=== PATIENT | female | born 1970 | race Caucasian/White ===

== ENCOUNTER → 2018-07-11 10:52 | Outpatient (CLI) | payer BC, SELFPAY ==
[2018-07-11 13:13] LABS: Thyroid Stimulating Hormone 0.73 uIU/mL (0.47-4.68)
== END ==
PROVIDERS: PCP Family Medicine; Visit Provider Internal Medicine Endocrinology, Diabetes & Metabolism
DX: C73 Malignant neoplasm of thyroid gland (principal); E89.0 Postprocedural hypothyroidism
CPT/HCPCS: 36415; 84443

== ENCOUNTER → 2019-07-30 11:47 | Outpatient (CLI) | payer BC, SELFPAY ==
[2019-07-30 12:19] LABS: Add Manual Diff / Slide Review NO; Basophils Absolute Auto 0 /uL (0-100); Basophils Percent Auto 0.5 % (0-2); Eosinophils Absolute Auto 100 /uL (0-450); Eosinophils Percent Auto 1.9 % (2-4); Hemoglobin 13.5 g/dL (12.0-16.0); Lymphocytes Absolute Auto 1500 /uL (1100-4500); Lymphocytes Percent Auto 29.9 % (25-40); Mean Corpuscular HGB Conc 34.7 % (30-36); Mean Corpuscular Hemoglobin 31.6 PG (26-34); Monocytes Absolute Auto 400 /uL (0-900); Monocytes Percent Auto 7.2 % (3-14); Neutrophils Absolute Auto 3000 /uL (1500-7000); Neutrophils Percent Auto 60.5 % (50-75); Platelet Count 207 X10^3/uL (150-400); Red Blood Cell Count 4.29 X10^6/uL (4.0-5.2); Red Cell Distribution Width 12.7 % (11.6-14.8)
[2019-07-30 12:30] LABS: Hemoglobin A1C% w Est Avg Glu 5.5 % (4.0-6.0)
[2019-07-30 12:49] LABS: Cholesterol 194 mg/dL (140-199); HDL Cholesterol 90 mg/dL (40-60); LDL Cholesterol Calculated 93 mg/dL (<100); Magnesium 1.9 mg/dL (1.6-2.3); Triglycerides 53 mg/dL (35-150)
[2019-07-30 13:06] LABS: Free T4, Direct Thyroxine 1.46 ng/dL (0.78-2.19); Vitamin D 25 Hydroxy (D3) 79.2 ng/mL (30.0-100.0)
[2019-07-30 13:20] LABS: Thyroid Stimulating Hormone 0.17 uIU/mL (0.47-4.68)
[2019-07-30 13:37] LABS: Ferritin 26.6 ng/mL (6.27-137)
[2019-07-30 14:07] LABS: Folate > 20.0 ng/mL (2.76-20.0); Vitamin B12 971 pg/mL (239-931)
[2019-08-01 14:27] LABS: Parathyroid Hormone, Intact 54 pg/mL (14-64)
[2019-08-02 13:11] LABS: Apolipoprotein B 65 mg/dL (<90); Cholesterol, Total 193 mg/dL (<200); HDL Cholesterol 97 mg/dL (> OR = 50); Lipoprotein (a) 77 nmol/L (<75); Non- HDL Cholesterol 96 (<130); Triglycerides 55 mg/dL (<150)
[2019-08-03 10:17] LABS: Vitamin B1 147 nmol/L (78-185)
[2019-08-03 13:55] LABS: Vitamin A 44 mcg/dL (38-98)
== END ==
PROVIDERS: PCP Student in an Organized Health Care Education/Training Program; Referring Provider Nurse Practitioner Family; Visit Provider Internal Medicine Endocrinology, Diabetes & Metabolism
DX: C73 Malignant neoplasm of thyroid gland (principal); E89.0 Postprocedural hypothyroidism; E66.01 Morbid (severe) obesity due to excess calories
CPT/HCPCS: 36415; 80061; 82306; 82310; 82607; 82728; 82746; 83036; 83695; 83735; 83970; 84425; 84439; 84443; 84590; 85025

== ENCOUNTER → 2019-09-30 13:24 | Outpatient (CLI) | payer BC, SELFPAY | PROVIDERS: PCP Student in an Organized Health Care Education/Training Program; Referring Provider Internal Medicine Endocrinology, Diabetes & Metabolism; Visit Provider Internal Medicine Endocrinology, Diabetes & Metabolism | DX: E89.0 Postprocedural hypothyroidism (principal) | CPT/HCPCS: 36415; 84443 ==

== ENCOUNTER → 2020-02-27 12:28 | Outpatient (CLI) | payer BC, SELFPAY ==
[2020-02-27 13:57] LABS: Thyroid Stimulating Hormone 0.778 uIU/mL (0.47-4.68)
== END ==
PROVIDERS: PCP Student in an Organized Health Care Education/Training Program; Referring Provider Internal Medicine Endocrinology, Diabetes & Metabolism; Visit Provider Internal Medicine Endocrinology, Diabetes & Metabolism
DX: E89.0 Postprocedural hypothyroidism (principal); C73 Malignant neoplasm of thyroid gland
CPT/HCPCS: 36415; 84443

== ENCOUNTER → 2020-08-06 10:18 | Outpatient (CLI) | payer BC, SELFPAY ==
[2020-08-06 12:17] LABS: Free T4, Direct Thyroxine 1.25 ng/dL (0.78-2.19)
[2020-08-06 12:31] LABS: Thyroid Stimulating Hormone 0.943 uIU/mL (0.47-4.68)
== END ==
PROVIDERS: PCP Student in an Organized Health Care Education/Training Program; Referring Provider Internal Medicine Endocrinology, Diabetes & Metabolism; Visit Provider Internal Medicine Endocrinology, Diabetes & Metabolism
DX: C73 Malignant neoplasm of thyroid gland (principal); E89.0 Postprocedural hypothyroidism
CPT/HCPCS: 36415; 84439; 84443

== ENCOUNTER → 2020-12-18 12:58 | Outpatient (CLI) | payer BC, SELFPAY ==
--- NOTE | 2020-12-18 | DI.MG.S_ITS ---
BILATERAL DIGITAL SCREENING MAMMOGRAM 3D/2D WITH CAD: 12/18/2020 CLINICAL: Routine screening. Comparison is made to exams dated: 09/18/2018 mammogram and 11/12/2019 mammogram - outside facility. There are scattered fibroglandular elements in both breasts. Current study was also evaluated with a Computer Aided Detection (CAD) system. No significant masses, calcifications, or other findings are seen in either breast. There has been no significant interval change. IMPRESSION: NEGATIVE There is no mammographic evidence of malignancy. A 1 year screening mammogram is recommended. This exam was interpreted at Station ID: [id number]. NOTE: For mammograms, a report in lay terms will be sent to the patient. Approximately 15% of breast malignancies will not be visualized mammographically. In the management of a palpable breast mass, a negative mammogram must not discourage biopsy of a clinically suspicious lesion. Electronically Signed By: Hero benjamin/maci:12/18/2020 13:34:34 letter sent: Normal Exam ACR BI-RADS Category 1: Negative 3341F
== END ==
PROVIDERS: PCP Student in an Organized Health Care Education/Training Program; Referring Provider Student in an Organized Health Care Education/Training Program; Visit Provider Student in an Organized Health Care Education/Training Program
DX: Z12.31 Encounter for screening mammogram for malignant neoplasm of breast (principal)
CPT/HCPCS: 77063; 77067

== ENCOUNTER → 2021-10-07 10:45 | Outpatient (CLI) | payer BC, SELFPAY ==
--- NOTE | 2021-10-07 | DI.US.S_ITS ---
PROCEDURE: US THYROID INDICATIONS: HISTORY THYROID CANCER/RIGHT THYROIDECTOMY TECHNIQUE: Real-time scanning was performed of the thyroid gland, with image documentation. COMPARISON: None. FINDINGS: Right: Removed Left: Thyroid lobe measures 5.2 x 1.6 x 1.4 cm, and is homogenous in echotexture. Isthmus: 1.2 mm thick. IMPRESSION: Normal appearing left thyroid lobe. Status post right thyroidectomy. ACR TI-RADS definitions and recommendations: TI-RADS 1 (benign): 0 points. FNA not needed. TI-RADS 2 (not suspicious): 2 points. FNA not needed. TI-RADS 3 (mildly suspicious): 3 points. * FNA if 2.5 cm or larger, follow up if 1.5 cm or larger (at 1, 3, and 5 years). TI-RADS 4 (moderately suspicious): 4-6 points. * FNA if 1.5 cm or larger, follow up if 1 cm or larger (at 1, 2, 3, and 5 years). TI-RADS 5 (highly suspicious): 7 points or more. * FNA if 1 cm or larger, follow up if 0.5 cm or larger (every year for 5 years). Dictated by: Franklyn Peace M.D. on 10/07/2021 at 10:33 Approved by: Franklyn Peace M.D. on 10/07/2021 at 10:34
== END ==
PROVIDERS: PCP Student in an Organized Health Care Education/Training Program; Referring Provider Internal Medicine Endocrinology, Diabetes & Metabolism; Visit Provider Internal Medicine Endocrinology, Diabetes & Metabolism
DX: C73 Malignant neoplasm of thyroid gland (principal); E89.0 Postprocedural hypothyroidism
CPT/HCPCS: 76536

== ENCOUNTER → 2022-01-01 10:55 | Outpatient (CLI) | payer BC, SELFPAY ==
--- NOTE | 2022-01-01 10:56 | DI.MG.S_ITS ---
BILATERAL DIGITAL SCREENING MAMMOGRAM 3D/2D WITH CAD: 01/01/2022 CLINICAL: Routine screening. Comparison is made to exams dated: 12/18/2020 mammogram - [facility], 11/12/2019 mammogram, and 09/18/2018 mammogram - outside facility. There are scattered fibroglandular elements in both breasts. Current study was also evaluated with a Computer Aided Detection (CAD) system. There is a benign focal asymmetry in the left breast. There also are benign calcifications in the right breast. No significant masses, calcifications, or other findings are seen in either breast. There has been no significant interval change. IMPRESSION: BENIGN There is no mammographic evidence of malignancy. A 1 year screening mammogram is recommended. Based on the Tyrer Cuzick model (a risk assessment model) the patient's lifetime risk is 9.6% and her 10 year risk is 2.5%. According to the ACR, ACS, and NCCN guidelines, an annual breast MRI exam along with mammogram is recommended if the patient's lifetime risk is 20% or greater. This exam was interpreted at Station ID: [id number]. NOTE: For mammograms, a report in lay terms will be sent to the patient. Approximately 15% of breast malignancies will not be visualized mammographically. In the management of a palpable breast mass, a negative mammogram must not discourage biopsy of a clinically suspicious lesion. Electronically Signed By: Tiffanie lomax/maci:01/03/2022 09:14:06 letter sent: Normal Exam ACR BI-RADS Category 2: Benign Finding(s) 3342F
== END ==
PROVIDERS: PCP Student in an Organized Health Care Education/Training Program; Referring Provider Internal Medicine; Visit Provider Internal Medicine
DX: Z12.31 Encounter for screening mammogram for malignant neoplasm of breast (principal)
CPT/HCPCS: 77063; 77067

== ENCOUNTER 2022-08-15 19:04 | Emergency (ER) | payer BC, SELFPAY ==
[2022-08-15 19:12] VITALS: BP 160/86; PULSE 78; RESP 16; TEMP 36.6; O2SAT 98; BMI 30.4
[2022-08-15] MEDS: TET,DIPH,PERTUSS(ACELL),VAC/PF 0.5 ML SYRINGE IM (19:37)
[2022-08-15] MEDS: LIDOCAINE 2% INJ MDV 20ML 5 ML SUBCUT (19:37)
--- NOTE | 2022-08-15 19:40 | PC.NURSE ---
Patient cut left 1st finger with knife at 1845. Tip of finger is nearly amputated. Bleeding contorlled with guaze and pressure.
[2022-08-15] MEDS: IBUPROFEN 400 MG TABLET 800 MG PO (20:24)
--- NOTE | 2022-08-15 20:32 | ED.WOUNDLAC ---
HPI - Wound/Laceration <Deborah Daugherty PA-C - Last Filed: 08/16/22 12:12> General Chief Complaint: Wound/Laceration Stated Complaint: left hand/finger cut/bleeding Source: patient Mode of arrival: Ambulatory History of Present Illness HPI narrative: 52-year-old female status post a left thumb injury sustained just prior to arrival. Patient patient states that she was at home, trying to slice a blu, when the knife slipped and injured her left thumb. Patient states that it is extremely painful, was bleeding a lot, however bleeding is controlled with pressure. Patient's last tetanus unknown. Patient denies numbness, tingling, weakness. Patient endorses full range of motion. Related Data Allergies Allergy/AdvReac Type Severity Reaction Status Date / Time No Known Drug Allergies Allergy Verified 08/15/22 20:32 Review of Systems <Deborah Daugherty PA-C - Last Filed: 08/16/22 12:12> Review of Systems ROS Unobtainable: All systems reviewed & are unremarkable except as noted in HPI and below Constitutional Constitutional: Denies chills, Denies fatigue, Denies fever(s), Denies frequent falls, Denies lethargy and Denies weakness Eyes Eyes: Denies change in vision, Denies eye discharge, Denies irritation and Denies loss of vision ENT Ears, Nose, Mouth, and Throat: Denies change in voice, Denies dizziness, Denies neck pain, Denies sore throat and Denies throat swelling Cardiovascular Cardiovascular: Denies chest pain, Denies irregular heart rhythm, Denies lightheadedness, Denies palpitations, Denies dyspnea, Denies dyspnea on exertion and Denies orthopnea Respiratory Respiratory: Denies cough, Denies dyspnea, Denies dyspnea on exertion and Denies wheezing Gastrointestinal Gastrointestinal: Denies abdominal pain, Denies change in bowel habits, Denies diarrhea, Denies nausea and Denies vomiting Genitourinary Genitourinary: Denies hematuria, Denies flank pain, Denies urinary incontinence and Denies urinary urgency Musculoskeletal Musculoskeletal: Denies back pain, Denies muscle weakness, Denies neck pain, Denies numbness and Denies tingling Integumentary/Breasts Skin/Breast: Denies pruritus, Denies erythema, Denies rash and Denies wounds Comments: Laceration to tip of left thumb Neurologic Neurologic: Denies behavioral changes, Denies confusion, Denies dizziness, Denies frequent falls, Denies loss of vision, Denies numbness, Denies tingling and Denies weakness Psychiatric Psychiatric: Denies anxiety, Denies behavioral changes, Denies confusion, Denies depression, Denies homicidal ideation and Denies suicidal ideation Endocrine Endocrine: Denies fatigue, Denies flushing and Denies palpitations Hematologic/Lymphatic Hematologic/Lymphatic: Denies easy bruising Allergic/Immunologic Allergic/Immunologic: Denies urticaria, Denies throat swelling and Denies wheezing Patient History <Deborah Daugherty PA-C - Last Filed: 08/16/22 12:12> Social History Smoking Status: Never smoker Smoking Status: Never smoker alcohol intake frequency: holidays/special occasions only Substance Use Type: does not use Exam <Deborah Daugherty PA-C - Last Filed: 08/16/22 12:12> Narrative Exam Narrative: Const General:?cooperative, healthy appearing and comfortable [facility] Head:?normal to inspection Ears:?hearing grossly normal bilaterally Nose:?external nose normal Face and sinus:?normal facial exam and sinuses nontender Mouth:?oral mucosae normal Throat:?posterior oropharynx normal Eyes General:?appearance normal, both eyes and all related structures Neck Neck:?normal visual inspection and no lymphadenopathy noted Resp Effort & Inspection:?normal respiratory effort Auscultation:?clear to auscultation bilaterally Cardio Rate:?regular rate Rhythm:?regular rhythm Integumentary 1 cm flap laceration to the tip of the left thumb. Full range of motion. Strength and sensation intact. Patient is neurovascularly intact. No internal structures visualized on exam. Neuro General:?patient alert, patient awake and patient oriented x3 Initial Vital Signs Initial Vital Signs: Vital Signs Temperature 98 F 08/15/22 19:12 Pulse Rate 78 08/15/22 19:12 Respiratory Rate 16 08/15/22 19:12 Blood Pressure 160/86 H 08/15/22 19:12 Pulse Oximetry 98 08/15/22 19:12 Oxygen Delivery Method 08/15/22 19:12 <Puma Mcgrath DO - Last Filed: 08/17/22 06:44> Initial Vital Signs Initial Vital Signs: Vital Signs Temperature 98 F 08/15/22 19:12 Pulse Rate 78 08/15/22 19:12 Respiratory Rate 16 08/15/22 19:12 Blood Pressure 160/86 H 08/15/22 19:12 Pulse Oximetry 98 08/15/22 19:12 Oxygen Delivery Method 08/15/22 19:12 Procedures <Deborah Daugherty PA-C - Last Filed: 08/16/22 12:12> Laceration Repair Laceration 1: Site: hand Side (If applicable): left Size (cm): 1 Description: flap Local Anesthetic: lidocaine 1% Amount of anesthesia used (mL): 1 Pre-repair: wound explored, irrigated extensively and deep structures intact Skin layer closed with: vicryl Skin layer suture size: 5-0 Number of sutures: 3 Technique: simple, interrupted Course <Deborah Daugherty PA-C - Last Filed: 08/16/22 12:12> Orders Ordered: Discontinued Medications Bacitracin (Bacitracin Oint 0.9 Gm Pckt) 1 applic TOP NOW ONE Stop: 08/15/22 20:28 Last Admin: 08/15/22 20:33 Dose: 1 applic Documented By: CONSTANTINE Diphtheria/Tetanus/Acell Pertussis (Tet,Diph,Pertuss(Acell),Vac/Pf 0.5 Ml Syringe) 0.5 ml IM .ONCE ONE Stop: 08/15/22 19:33 Last Admin: 08/15/22 19:37 Dose: 0.5 ml Documented By: JEANINE Ibuprofen (Ibuprofen 400 Mg Tablet) 800 mg PO NOW ONE Stop: 08/15/22 20:13 Last Admin: 08/15/22 20:24 Dose: 800 mg Documented By: CORRY Lidocaine HCl (Lidocaine 2% Inj Mdv 20ml) 5 ml SUBCUT NOW ONE Stop: 08/15/22 19:30 Last Admin: 08/15/22 19:37 Dose: 5 ml Documented By: JEANINE Vital Signs Vital signs: Vital Signs - 8 hr 08/15/22 19:12 Temperature 98 F Pulse Rate 78 Respiratory Rate 16 Blood Pressure 160/86 H Pulse Oximetry 98 Oxygen Delivery Method Room Air <Puma Mcgrath DO - Last Filed: 08/17/22 06:44> Orders Ordered: Discontinued Medications Bacitracin (Bacitracin Oint 0.9 Gm Pckt) 1 applic TOP NOW ONE Stop: 08/15/22 20:28 Last Admin: 08/15/22 20:33 Dose: 1 applic Documented By: CONSTANTINE Diphtheria/Tetanus/Acell Pertussis (Tet,Diph,Pertuss(Acell),Vac/Pf 0.5 Ml Syringe) 0.5 ml IM .ONCE ONE Stop: 08/15/22 19:33 Last Admin: 08/15/22 19:37 Dose: 0.5 ml Documented By: JEANINE Ibuprofen (Ibuprofen 400 Mg Tablet) 800 mg PO NOW ONE Stop: 08/15/22 20:13 Last Admin: 08/15/22 20:24 Dose: 800 mg Documented By: CORRY Lidocaine HCl (Lidocaine 2% Inj Mdv 20ml) 5 ml SUBCUT NOW ONE Stop: 08/15/22 19:30 Last Admin: 08/15/22 19:37 Dose: 5 ml Documented By: JEANINE Vital Signs Vital signs: Vital Signs - 8 hr 08/15/22 19:12 Temperature 98 F Pulse Rate 78 Respiratory Rate 16 Blood Pressure 160/86 H Pulse Oximetry 98 Oxygen Delivery Method Room Air MDM - Wound/Laceration <Deborah Daugherty PA-C - Last Filed: 08/16/22 12:12> MDM Narrative Medical decision making narrative: 52-year-old female status post a left thumb injury sustained just prior to arrival. Given history and physical exam, there is no concern for fracture/dislocation, no concern for foreign body. No imaging indicated at this time. Laceration was repaired with 3 sutures. Tetanus was updated. Signs of infection, wound care discussed with patient. ED return precautions were discussed with patient. Patient verbalized understanding. Medical records reviewed: Yes Discharge Plan Departure Patient Disposition: Home Clinical Impression: Laceration Instructions: DI for Laceration Repair Activity Restrictions/Additional Instructions: You were evaluated in the ED today for a laceration sustained to your left thumb. Your injury was repaired with 3 sutures. The sutures will need to be removed in 7-10 days. You may go to your PCP, walk-in clinic, urgent care or return to the ED for suture removal. Please watch for signs of infection including worsening redness, warmth, swelling, pain, discharge. Return to the ED if you experience any signs of infection. Please keep the wound clean and dry for the 1st 24 hours, after which you may wash gently with soap and water. Please ensure to keep the wound dry and change dressings immediately if wet. Referrals: Lisa Em MD [Primary Care Provider] - Stand Alone Forms: Patient Portal/API <Puma Mcgrath DO - Last Filed: 08/17/22 06:44> Cosign ED Attending Temi Attestation: I was immediately available in the department for consultation. Documentation has been reviewed. I agree with assessment and plan.
[2022-08-15] MEDS: BACITRACIN OINT 0.9 GM PCKT 1 APPLIC TOP (20:33)
[2022-08-15 20:35] VITALS: BP 165/82; PULSE 72; O2SAT 99
== END 2022-08-15 20:43 | disposition home or self-care (01) ==
PROVIDERS: Emergency Provider Student in an Organized Health Care Education/Training Program; PCP Student in an Organized Health Care Education/Training Program
DX: S61.012A Laceration without foreign body of left thumb without damage to nail, initial encounter (principal); W26.0XXA Contact with knife, initial encounter; Z23 Encounter for immunization
CPT/HCPCS: 12001; 90471; 99283; 99284; 90715

== ENCOUNTER → 2023-01-02 14:16 | Outpatient (CLI) | payer BC, SELFPAY ==
--- NOTE | 2023-01-02 | DI.MG.S_ITS ---
BILATERAL DIGITAL SCREENING MAMMOGRAM 3D/2D WITH CAD: 01/02/2023 CLINICAL: Routine screening. Comparison is made to exams dated: 01/01/2022 mammogram, 12/18/2020 mammogram - [facility], and 11/12/2019 mammogram - outside facility. There are scattered areas of fibroglandular density in both breasts (category b / 25%-50% glandular tissue). Current study was also evaluated with a Computer Aided Detection (CAD) system. There is a benign focal asymmetry in the left breast. There also are benign calcifications in the right breast. No significant masses, calcifications, or other findings are seen in either breast. There has been no significant interval change. IMPRESSION: BENIGN There is no mammographic evidence of malignancy. A 1 year screening mammogram is recommended. Based on the Tyrer Cuzick model (a risk assessment model) the patient's lifetime risk is 9.6% and her 10 year risk is 2.5%. According to the ACR, ACS, and NCCN guidelines, an annual breast MRI exam along with mammogram is recommended if the patient's lifetime risk is 20% or greater. This exam was interpreted at Station ID: [id number]. NOTE: For mammograms, a report in lay terms will be sent to the patient. Approximately 15% of breast malignancies will not be visualized mammographically. In the management of a palpable breast mass, a negative mammogram must not discourage biopsy of a clinically suspicious lesion. Electronically Signed By: Shaan fisher/maci:01/02/2023 14:57:31 letter sent: Normal Exam ACR BI-RADS Category 2: Benign Finding(s) 3342F
== END ==
PROVIDERS: PCP Student in an Organized Health Care Education/Training Program; Referring Provider Family Medicine; Visit Provider Family Medicine
DX: Z12.31 Encounter for screening mammogram for malignant neoplasm of breast (principal)
CPT/HCPCS: 77063; 77067

== ENCOUNTER → 2023-08-10 13:10 | Outpatient (CLI) | payer BC, SELFPAY ==
--- NOTE | 2023-08-10 | DI.RAD.S_ITS ---
PROCEDURE: XR SHOULDER RT MIN 2V INDICATIONS: CHRONIC RT SHOULDER PAIN TECHNIQUE: 3 views of the shoulder were acquired. COMPARISON: None. FINDINGS: Bones: No fractures or dislocations. No suspicious bony lesions. Visualized ribs appear intact. There are degenerative changes involving the acromioclavicular and glenohumeral joints. Coracoclavicular and acromioclavicular intervals are maintained. Soft tissues: No suspicious soft tissue calcifications. IMPRESSION: Degenerative changes of the acromioclavicular and glenohumeral joints. No acute fracture or dislocation. Dictated by: Albert Maldonado M.D. on 08/10/2023 at 20:32 Approved by: Albert Maldonado M.D. on 08/10/2023 at 20:33
== END ==
PROVIDERS: PCP Student in an Organized Health Care Education/Training Program; Referring Provider Family Medicine; Visit Provider Family Medicine
DX: M25.511 Pain in right shoulder (principal); G89.29 Other chronic pain
CPT/HCPCS: 73030

== ENCOUNTER → 2023-10-06 15:23 | Outpatient (CLI) | payer BC, SELFPAY ==
--- NOTE | 2023-10-06 | DI.US.S_ITS ---
PROCEDURE: US THYROID INDICATIONS: HX RIGHT THYROID CANCER/THYROIDECTOMY TECHNIQUE: Real-time scanning was performed of the thyroid gland, with image documentation. COMPARISON: [facility], [place], US THYROID, 10/07/2021, 11:15. FINDINGS: Thyroid: Right lobe is absent. Left lobe measures 6.1 x 1.3 x 1.4 cm. Isthmus is 0.1 cm thick. Echotexture is mildly heterogeneous. No focal nodules. IMPRESSION: Right thyroidectomy. Mildly heterogeneous left thyroid, which may indicate underlying thyroiditis. No focal nodules. Dictated by: Awais Lr M.D. on 10/06/2023 at 16:27 Approved by: Awais Lr M.D. on 10/06/2023 at 16:28
== END ==
LOC: US 15:25
PROVIDERS: PCP Family Medicine; Referring Provider Internal Medicine Endocrinology, Diabetes & Metabolism; Visit Provider Internal Medicine Endocrinology, Diabetes & Metabolism
DX: C73 Malignant neoplasm of thyroid gland (principal); E89.0 Postprocedural hypothyroidism
CPT/HCPCS: 76536

== ENCOUNTER → 2024-01-26 11:31 | Outpatient (CLI) | payer BC, SELFPAY ==
--- NOTE | 2024-01-26 11:32 | DI.MG.S_ITS ---
BILATERAL DIGITAL SCREENING MAMMOGRAM 3D/2D WITH CAD: 01/26/2024 CLINICAL: Routine screening. Comparison is made to exams dated: 01/02/2023 mammogram, 01/01/2022 mammogram, and 12/18/2020 mammogram - [facility]. There are scattered areas of fibroglandular density in both breasts (category b / 25%-50% glandular tissue). Current study was also evaluated with a Computer Aided Detection (CAD) system. There is a benign focal asymmetry in the left breast. There also are benign calcifications in the right breast. No significant masses, calcifications, or other findings are seen in either breast. There has been no significant interval change. IMPRESSION: BENIGN There is no mammographic evidence of malignancy. A 1 year screening mammogram is recommended. Based on the Tyrer Cuzick model (a risk assessment model) the patient's lifetime risk is 9.4% and her 10 year risk is 2.7%. According to the ACR, ACS, and NCCN guidelines, an annual breast MRI exam along with mammogram is recommended if the patient's lifetime risk is 20% or greater. This exam was interpreted at Station ID: [id number]. NOTE: For mammograms, a report in lay terms will be sent to the patient. Approximately 15% of breast malignancies will not be visualized mammographically. In the management of a palpable breast mass, a negative mammogram must not discourage biopsy of a clinically suspicious lesion. Electronically Signed By: Lv oropeza/maci:01/26/2024 13:20:42 letter sent: Normal Exam ACR BI-RADS Category 2: Benign Finding(s) 3342F
== END ==
LOC: MAMMO 11:31
PROVIDERS: PCP Family Medicine; Referring Provider Family Medicine; Visit Provider Family Medicine
DX: Z12.31 Encounter for screening mammogram for malignant neoplasm of breast (principal); R92.323 Mammographic fibroglandular density, bilateral breasts
CPT/HCPCS: 77063; 77067

== ENCOUNTER → 2024-07-12 14:53 | Outpatient (CLI) | payer BC, SELFPAY ==
--- NOTE | 2024-07-12 14:55 | DI.RAD.S_ITS ---
PROCEDURE: XR HIP W PEL IF DONE RT 2V INDICATIONS: HIP PAIN TECHNIQUE: 2 views of the hip were acquired. COMPARISON: None. FINDINGS: Bones: Minimal bilateral hip arthrosis. No acute displaced fracture or dislocation. Probable small intraosseous cyst at the left femoral neck. Soft tissues: Pelvic clips and phleboliths. IMPRESSION: Minimal bilateral hip arthrosis. If there is high concern for further derangement, consider MRI evaluation. Probable small intraosseous cyst at the left femoral neck. Dictated by: Shaan Castillo M.D. on 07/12/2024 at 16:52 Approved by: Shaan Castillo M.D. on 07/12/2024 at 16:53
== END ==
PROVIDERS: PCP Family Medicine; Referring Provider Family Medicine; Visit Provider Family Medicine
DX: M25.551 Pain in right hip (principal)
CPT/HCPCS: 73502

== ENCOUNTER → 2024-09-19 10:46 | Outpatient (CLI) | payer BC, SELFPAY ==
--- NOTE | 2024-09-19 10:47 | DI.US.S_ITS ---
PROCEDURE: US THYROID INDICATIONS: F/U NODULES TECHNIQUE: Real-time scanning was performed of the thyroid gland, with image documentation. COMPARISON: [facility], [place], US THYROID, 10/06/2023, 15:44. FINDINGS: Right thyroid surgically absent. Left thyroid measures 5.5 x 1.4 x 1.2 cm. Isthmus measures 0.2 cm No suspicious nodules. No evidence of recurrent or residual disease. Fascial planes are maintained on right. IMPRESSION: Right thyroid surgical resection without evidence of recurrent or residual disease. No thyroid nodules ACR TI-RADS definitions and recommendations: TI-RADS 1 (benign): 0 points. FNA not needed. TI-RADS 2 (not suspicious): 2 points. FNA not needed. TI-RADS 3: 3 points. * FNA if 2.5 cm or larger, follow up if 1.5 cm or larger (at 1, 3, and 5 years). TI-RADS 4: 4-6 points. * FNA if 1.5 cm or larger, follow up if 1 cm or larger (at 1, 2, 3, and 5 years). TI-RADS 5: 7 points or more. * FNA if 1 cm or larger, follow up if 0.5 cm or larger (every year for 5 years). 1. Dictated by: Geovany Abbasi M.D. on 09/19/2024 at 14:28 Approved by: Geovany Abbasi M.D. on 09/19/2024 at 14:32
== END ==
PROVIDERS: Family Provider Family Medicine; PCP Family Medicine; Referring Provider Family Medicine; Visit Provider Family Medicine
DX: E04.1 Nontoxic single thyroid nodule (principal)
CPT/HCPCS: 76536

== ENCOUNTER 2024-11-20 10:45 | Outpatient (RCR) | payer BC, SELFPAY ==
--- NOTE | 2024-09-10 17:16 | PT.OIE ---
Current Diagnoses Low back pain, unspecified (09/10/24) Visit Care Team Role Provider Type Jonelle Mcallister MD Attending Provider Physician Family Provider Primary Care Provider Referring Provider Specialty: Family Practice Address: [address] [place] [address], [facility] [place], [facility] Email: [email or web address] Physical Therapy Initial Evaluation PT-OP-A Visit Information Start: 09/10/24 10:46 Freq: Status: Active Protocol: Document 09/10/24 10:45 MB (Rec: 09/10/24 11:25 MB [id number]) Out-Patient Physical Therapy Visit Information Visit Information Visit Type Initial Evaluation Visit Note [facility] Visit Start Time 10:45 Visit Stop Time 11:25 Visit Number 1 Number of ENDBAND CUTTER HAND Visits 0 Evaluation Information Evaluation Date 09/10/24 PT-OP-B Current Condition Start: 09/10/24 10:46 Freq: Status: Active Protocol: Document 09/10/24 10:45 MB (Rec: 09/10/24 11:25 MB [id number]) Current Condition History of Current Condition Onset Date Around November or December 2023 Current Complaints Pain radiating into right thigh when she moves History of Current Condition Pt went to [facility] for PT last year and she wanted to come to hospital for this issue. She was going to [facility] for right shoulder pain. The exercises there might have been too much . She works out at the gym regularly. She had an onset of right SI pain down through the leg that she thinks may be related to changing lifting and working patterns d/t right shoulder. She is currently most concerned about her right hip and not so much the back. Dr. Mcallister may have thought more of a back issue she saw her in June. Ibuprofen and acetaminophen help her pain. Sitting too long makes the pain worse. She has not been going to the gym as much. She is doing light weights. She is just doing the machines. Her balance is a little challenged. She is doing cardio on elliptical and stairs. Pt is sleeping well. Pt denies numbness and tingling in the leg. Prior Treatments and Tests IMPRESSION: Right hip x-ray 07/12/24: Minimal bilateral hip arthrosis. If there is high concern for further derangement, consider MRI evaluation. Probable small intraosseous cyst at the left femoral neck. Treatment Goals Patient/Caregiver Goals To decrease pain. PT-OP-C Subjective Start: 09/10/24 10:46 Freq: Status: Active Protocol: Document 09/10/24 10:45 MB (Rec: 09/10/24 11:25 MB [id number]) OP-PT Subjective Patient Comments Patient Comments See history of current condition. PT-OP-G Mobility & Gait Start: 09/10/24 10:46 Freq: Status: Active Protocol: Document 09/10/24 10:45 MB (Rec: 09/10/24 11:25 MB [id number]) OP Gait Assessment Comments Gait Comments Left distal LE with more IR and valgus at knee with more lateral WB on foot, appears to have a functional leg length difference in standing PT-OP-J Posture/Palpation/Skin Start: 09/10/24 10:46 Freq: Status: Active Protocol: Document 09/10/24 10:45 MB (Rec: 09/10/24 11:25 MB [id number]) Posture Evaluation Comments Posture Comments Left distal LE with more IR and valgus at knee with more lateral WB on foot, appears to have a functional leg length difference in standing with LLE mildly longer and left knee mildly flexed. Severe forward head and rounded shoulder and rounded shoulders such that tragus is not anterior to AC joint on the right, Dowager's hump, decreased thoracic kyphosis and right shoulder and scapula are more anteriorly positioned than the left; changes in thoracic and lumbar curvature as well, left iliac crest is mildly higher than the right. Prefers extension with spinal extension to 20 deg in standing with hands on hips and fingers 1 from floor with forward flexion and reports of increased pain in right hip and thigh: SB to the right 10 deg and SB to left 5 deg. Slump: negative B Supine passive SLR: B 70 deg and pt reports discomfort anterior right hip with passive SLR right Pt reports clicking in right hip when she gets up in the morning and then if feels better, pt report stiffness in right hip when she goes to get up Supine SI testing: more stiffness on the left. Pt reports hypermobile usually. Scour and JEOVANNY B negative for pain. Of note, anterior hip popping with both. PT-OP-K Range of Motion Start: 09/10/24 10:46 Freq: Status: Active Protocol: Document 09/10/24 10:45 MB (Rec: 09/10/24 11:25 MB [id number]) Hip Goniometric Range of Motion Hip ROM Comments Supine ROM: left IR 20 deg and ER at least 60 deg; right hip is similar to the left PT-OP-M Strength Start: 09/10/24 10:46 Freq: Status: Active Protocol: Document 09/10/24 10:45 MB (Rec: 09/10/24 11:25 MB [id number]) Hip Strength Hip Manual Muscle Testing Left Flexion (L2) 4+ Good+ Extension (S1) 4+ Good+ Abduction 4+ Good+ Adduction 4 Good External Rotation 4+ Good+ Internal Rotation 4+ Good+ Right Flexion (L2) 4 Good Extension (S1) 4 Good Abduction 4+ Good+ Adduction 4 Good External Rotation 4- Good- Internal Rotation 3+ Fair+ Comments All MMT in supine today Knee Strength Knee Manual Muscle Testing Left Flexion (S2) 5 Normal Extension (L3) 5 Normal Right Flexion (S2) 5 Normal Extension (L3) 5 Normal Ankle/Foot Strength Ankle and Foot Manual Muscle Testing Left Dorsiflexion (L4) 5 Normal Right Dorsiflexion (L4) 5 Normal Toe Strength Toe Manual Muscle Testing Left Great Toe Extension 5 Normal Right Great Toe Extension 5 Normal PT-OP-Q Treatments Start: 09/10/24 10:46 Freq: Status: Active Protocol: Document 09/10/24 10:45 MB (Rec: 09/10/24 11:25 MB [id number]) Therapeutic Exercises Supine Exercises Pelvic realignment exercises Supine Exercise Name HEP and handout given Side bilateral Reps/Minutes 5 reps, 3 sec hold all exercises Comments Feet together ball squeeze iso , knee opp ankle iso, thigh press down iso Self-Care/Home Management Treatment Education Patient Education Body Mechanics,Home Exercise Program,Joint Protection,Pain Management,Posture Other Education Ed pt on benefits of log rolling and pillow between arms and legs when sleeping on side, discussed PT's functional impression and PT plan PT-OP-T Assessment and Plan Start: 09/10/24 10:46 Freq: Status: Active Protocol: Document 09/10/24 10:45 MB (Rec: 09/10/24 11:25 MB [id number]) Physical Therapy Assessment Rehab Potential Rehabilitation Potential Good Evaluation Complexity Number of Personal Factors/Comorbidities 1-2 Number of Body Systems Impaired 1-2 Clinical Presentation at Evaluation Evolving Impairments Impairments Pain,Posture,ROM,Soft Tissue Mobility,Strength Goals 3 Impairment Lack of HEP Cat Wagon Operator Goal (LTG) Pt will perform progressive HEP with I including pelvic realignment, postural, flexibility, strengthening and balance exercises to improve quality of life and overall strength. LTG Duration 8 weeks 2 Impairment Hip weakness Detention Goal (LTG) Pt will present with B hip flexion, abduction, adduction, extension and IR and ER strength to at least 5/5 to improve pain and functional mobility. LTG Duration 8 weeks 1 Impairment C/o right hip and thigh pain Cat Wagon Operator Goal (LTG) Pt will report an overall 85% improvement in right hip and thigh pain to improve quality of life. LTG Duration 8 weeks Assessment Summary Assessment Pt reports about an 8 month history of right LB/SI pain that transitioned to hip/thigh discomfort since she had a right shoulder injury and then compensated with her posture when working out. Pt reports history of a cracked tailbone with of son 19 years ago as well as a leg lenth discrepancy. She cannot remember which leg is longer and PT observes left leg functionally longer than right in standing today. Pt presents with negative Slump, Scour and JEOVANNY testing and she does have B anterior hip popping with passive movement of hips. Pt also presents with hip weakness. Pt presents with other postural changes and pelvic obliquities today. She will benefit from PT to improve pelvic alignment, posture, flexibility, balance and strength. Monitor symptoms in leg and if they con't, may consider referring back for more testing. Physical Therapy Plan Frequency and Duration Frequency of Treatment 1-2x/wk Duration of treatment (weeks) 8 Plan of Care Start Date 09/10/24 Plan of Care End Date 11/10/24 Therapeutic Interventions Therapeutic Interventions Balance Training,Gait Training ,Home Exercise Program,Joint Mobilizations,Manual Therapy, Neuromuscular Re-education, Patient/Caregiver Education, Self-Care/Home Management,Soft Tissue Mobilization,Taping, Therapeutic Activities, Therapeutic Exercises Modalities Cold Pack/Ice Massage,Electric Stimulation,Hot Packs, Ultrasound Next Visit Focus/Plan Next Note Type Treatment Note Next Visit Plan Review pelvic realignment exercises, initiate manual work and progress flexibility exercises in supine
--- NOTE | 2024-09-10 17:16 | PT.OPPOC ---
Physical, Occupational & Speech Therapy At [facility] Current Diagnoses Low back pain, unspecified (09/10/24) Visit Care Team Role Provider Type Jonelle Mcallister MD Attending Provider Physician Family Provider Primary Care Provider Referring Provider Specialty: Family Practice Address: [address] [place] [address], [facility] Email: [email or web address] Plan Of Care PT-OP-B Current Condition Start: 09/10/24 10:46 Freq: Status: Active Protocol: Document 09/10/24 10:45 MB (Rec: 09/10/24 11:25 MB [id number]) Current Condition History of Current Condition Onset Date Around November or December 2023 Current Complaints Pain radiating into right thigh when she moves History of Current Condition Pt went to [facility] for PT last year and she wanted to come to hospital for this issue. She was going to [facility] for right shoulder pain. The exercises there might have been too much . She works out at the gym regularly. She had an onset of right SI pain down through the leg that she thinks may be related to changing lifting and working patterns d/t right shoulder. She is currently most concerned about her right hip and not so much the back. Dr. Mcallister may have thought more of a back issue she saw her in June. Ibuprofen and acetaminophen help her pain. Sitting too long makes the pain worse. She has not been going to the gym as much. She is doing light weights. She is just doing the machines. Her balance is a little challenged. She is doing cardio on elliptical and stairs. Pt is sleeping well. Pt denies numbness and tingling in the leg. Prior Treatments and Tests IMPRESSION: Right hip x-ray 07/12/24: Minimal bilateral hip arthrosis. If there is high concern for further derangement, consider MRI evaluation. Probable small intraosseous cyst at the left femoral neck. Treatment Goals Patient/Caregiver Goals To decrease pain. PT-OP-T Assessment and Plan Start: 09/10/24 10:46 Freq: Status: Active Protocol: Document 09/10/24 10:45 MB (Rec: 09/10/24 11:25 MB [id number]) Physical Therapy Assessment Rehab Potential Rehabilitation Potential Good Evaluation Complexity Number of Personal Factors/Comorbidities 1-2 Number of Body Systems Impaired 1-2 Clinical Presentation at Evaluation Evolving Impairments Impairments Pain,Posture,ROM,Soft Tissue Mobility,Strength Goals 3 Impairment Lack of HEP Payroll And Benefits Coordinator Goal (LTG) Pt will perform progressive HEP with I including pelvic realignment, postural, flexibility, strengthening and balance exercises to improve quality of life and overall strength. LTG Duration 8 weeks 2 Impairment Hip weakness Payroll And Benefits Coordinator Goal (LTG) Pt will present with B hip flexion, abduction, adduction, extension and IR and ER strength to at least 5/5 to improve pain and functional mobility. LTG Duration 8 weeks 1 Impairment C/o right hip and thigh pain Correction Goal (LTG) Pt will report an overall 85% improvement in right hip and thigh pain to improve quality of life. LTG Duration 8 weeks Assessment Summary Assessment Pt reports about an 8 month history of right LB/SI pain that transitioned to hip/thigh discomfort since she had a right shoulder injury and then compensated with her posture when working out. Pt reports history of a cracked tailbone with of son 19 years ago as well as a leg lenth discrepancy. She cannot remember which leg is longer and PT observes left leg functionally longer than right in standing today. Pt presents with negative Slump, Scour and JEOVANNY testing and she does have B anterior hip popping with passive movement of hips. Pt also presents with hip weakness. Pt presents with other postural changes and pelvic obliquities today. She will benefit from PT to improve pelvic alignment, posture, flexibility, balance and strength. Monitor symptoms in leg and if they con't, may consider referring back for more testing. Physical Therapy Plan Frequency and Duration Frequency of Treatment 1-2x/wk Duration of treatment (weeks) 8 Plan of Care Start Date 09/10/24 Plan of Care End Date 11/10/24 Therapeutic Interventions Therapeutic Interventions Balance Training,Gait Training ,Home Exercise Program,Joint Mobilizations,Manual Therapy, Neuromuscular Re-education, Patient/Caregiver Education, Self-Care/Home Management,Soft Tissue Mobilization,Taping, Therapeutic Activities, Therapeutic Exercises Modalities Cold Pack/Ice Massage,Electric Stimulation,Hot Packs, Ultrasound Next Visit Focus/Plan Next Note Type Treatment Note Next Visit Plan Review pelvic realignment exercises, initiate manual work and progress flexibility exercises in supine Plan of Care Dates Plan of Care Start Date 09/10/24 Plan of Care End Date 11/10/24 Electronically Signed by: Lary Hobbs, PT 09/10/24 0149 If you are in agreement with this Plan of Care, please return a signed and dated copy. I have reviewed this Plan of Care and certify that the skilled therapy services above are required to meet the patient?s needs. Physician Signature Date Printed Name and Credentials Clinical Instructor Signature Printed Name and Credentials
--- NOTE | 2024-09-16 09:03 | PT.OTN ---
Current Diagnoses Low back pain, unspecified (09/16/24) Physical Therapy Treatment Note PT-OP-A Visit Information Start: 09/10/24 10:46 Freq: Status: Active Protocol: Document 09/16/24 08:20 MB (Rec: 09/16/24 09:03 MB [id number]) Out-Patient Physical Therapy Visit Information Visit Information Visit Type Treatment Note Visit Start Time 08:20 Visit Stop Time 09:00 Visit Number 2 Number of ADMINISTRATIVE PROFESSIONAL Visits 0 Evaluation Information Evaluation Date 09/10/24 PT-OP-B Current Condition Start: 09/10/24 10:46 Freq: Status: Active Protocol: Document 09/10/24 10:45 MB (Rec: 09/10/24 11:25 MB [id number]) Current Condition History of Current Condition Onset Date Around November or December 2023 Current Complaints Pain radiating into right thigh when she moves History of Current Condition Pt went to [facility] for PT last year and she wanted to come to hospital for this issue. She was going to [facility] for right shoulder pain. The exercises there might have been too much . She works out at the gym regularly. She had an onset of right SI pain down through the leg that she thinks may be related to changing lifting and working patterns d/t right shoulder. She is currently most concerned about her right hip and not so much the back. Dr. Mcallister may have thought more of a back issue she saw her in June. Ibuprofen and acetaminophen help her pain. Sitting too long makes the pain worse. She has not been going to the gym as much. She is doing light weights. She is just doing the machines. Her balance is a little challenged. She is doing cardio on elliptical and stairs. Pt is sleeping well. Pt denies numbness and tingling in the leg. Prior Treatments and Tests IMPRESSION: Right hip x-ray 07/12/24: Minimal bilateral hip arthrosis. If there is high concern for further derangement, consider MRI evaluation. Probable small intraosseous cyst at the left femoral neck. Treatment Goals Patient/Caregiver Goals To decrease pain. PT-OP-C Subjective Start: 09/10/24 10:46 Freq: Status: Active Protocol: Document 09/16/24 08:20 MB (Rec: 09/16/24 09:03 MB [id number]) OP-PT Subjective Patient Comments Patient Comments No changes and pt went back to the gym and did light weights on machines. PT-OP-G Mobility & Gait Start: 09/10/24 10:46 Freq: Status: Active Protocol: Document 09/10/24 10:45 MB (Rec: 09/10/24 11:25 MB [id number]) OP Gait Assessment Comments Gait Comments Left distal LE with more IR and valgus at knee with more lateral WB on foot, appears to have a functional leg length difference in standing PT-OP-J Posture/Palpation/Skin Start: 09/10/24 10:46 Freq: Status: Active Protocol: Document 09/10/24 10:45 MB (Rec: 09/10/24 11:25 MB [id number]) Posture Evaluation Comments Posture Comments Left distal LE with more IR and valgus at knee with more lateral WB on foot, appears to have a functional leg length difference in standing with LLE mildly longer and left knee mildly flexed. Severe forward head and rounded shoulder and rounded shoulders such that tragus is not anterior to AC joint on the right, Dowager's hump, decreased thoracic kyphosis and right shoulder and scapula are more anteriorly positioned than the left; changes in thoracic and lumbar curvature as well, left iliac crest is mildly higher than the right. Prefers extension with spinal extension to 20 deg in standing with hands on hips and fingers 1 from floor with forward flexion and reports of increased pain in right hip and thigh: SB to the right 10 deg and SB to left 5 deg. Slump: negative B Supine passive SLR: B 70 deg and pt reports discomfort anterior right hip with passive SLR right Pt reports clicking in right hip when she gets up in the morning and then if feels better, pt report stiffness in right hip when she goes to get up Supine SI testing: more stiffness on the left. Pt reports hypermobile usually. Scour and JEOVANNY B negative for pain. Of note, anterior hip popping with both. PT-OP-K Range of Motion Start: 09/10/24 10:46 Freq: Status: Active Protocol: Document 09/10/24 10:45 MB (Rec: 09/10/24 11:25 MB [id number]) Hip Goniometric Range of Motion Hip ROM Comments Supine ROM: left IR 20 deg and ER at least 60 deg; right hip is similar to the left PT-OP-M Strength Start: 09/10/24 10:46 Freq: Status: Active Protocol: Document 09/10/24 10:45 MB (Rec: 09/10/24 11:25 MB [id number]) Hip Strength Hip Manual Muscle Testing Left Flexion (L2) 4+ Good+ Extension (S1) 4+ Good+ Abduction 4+ Good+ Adduction 4 Good External Rotation 4+ Good+ Internal Rotation 4+ Good+ Right Flexion (L2) 4 Good Extension (S1) 4 Good Abduction 4+ Good+ Adduction 4 Good External Rotation 4- Good- Internal Rotation 3+ Fair+ Comments All MMT in supine today Knee Strength Knee Manual Muscle Testing Left Flexion (S2) 5 Normal Extension (L3) 5 Normal Right Flexion (S2) 5 Normal Extension (L3) 5 Normal Ankle/Foot Strength Ankle and Foot Manual Muscle Testing Left Dorsiflexion (L4) 5 Normal Right Dorsiflexion (L4) 5 Normal Toe Strength Toe Manual Muscle Testing Left Great Toe Extension 5 Normal Right Great Toe Extension 5 Normal PT-OP-Q Treatments Start: 09/10/24 10:46 Freq: Status: Active Protocol: Document 09/16/24 08:20 MB (Rec: 09/16/24 09:03 MB [id number]) Therapeutic Exercises Supine Exercises Pelvic realignment exercises Supine Exercise Name HEP and handout given Side bilateral Reps/Minutes 5 reps, 3 sec hold all exercises Comments Feet together ball squeeze iso , knee opp ankle iso, thigh press down iso Manual Therapy Treatment Consent Patient gave verbal consent for manual Yes treatment Other Other Manual Treatments Pt standing with most tension at slade areas of C7, T1 and T9 that does not change much with neutral, flexion or extension . Nothing is asking to be treated as far as Fascial Counterstrain. STM gently total body, some tension in mastoid. Gentle positional release for left abdomen and left anterior and posterior pelvis is stiffer than the right, left ribs positional release. PT-OP-T Assessment and Plan Start: 09/10/24 10:46 Freq: Status: Active Protocol: Document 09/16/24 08:20 MB (Rec: 09/16/24 09:03 MB [id number]) Physical Therapy Assessment Rehab Potential Rehabilitation Potential Good Evaluation Complexity Number of Personal Factors/Comorbidities 1-2 Number of Body Systems Impaired 1-2 Clinical Presentation at Evaluation Evolving Impairments Impairments Pain,Posture,ROM,Soft Tissue Mobility,Strength Goals 3 Impairment Lack of HEP Automatic Vulcanizing Lead Operator Goal (LTG) Pt will perform progressive HEP with I including pelvic realignment, postural, flexibility, strengthening and balance exercises to improve quality of life and overall strength. LTG Duration 8 weeks 2 Impairment Hip weakness Alf Goal (LTG) Pt will present with B hip flexion, abduction, adduction, extension and IR and ER strength to at least 5/5 to improve pain and functional mobility. LTG Duration 8 weeks 1 Impairment C/o right hip and thigh pain Automatic Vulcanizing Lead Operator Goal (LTG) Pt will report an overall 85% improvement in right hip and thigh pain to improve quality of life. LTG Duration 8 weeks Assessment Summary Assessment Pt reports she has been on an injectable for weight loss for one year and she has had some constipation. She had a gastric sleeve. She has had a 45 lb weight loss in one year. She also has half a thyroid. She had CA and gets checked once a year. Pt with increased tension left anterior pelvis and ribs, over abdominal viscera on the left and left lung, fascia restrictions and gently treated today with positional release. Con't to monitor right sciatic symptoms as far as any viscera and/or pelvic and functional leg length changes. Physical Therapy Plan Frequency and Duration Frequency of Treatment 1-2x/wk Duration of treatment (weeks) 8 Plan of Care Start Date 09/10/24 Plan of Care End Date 11/10/24 Therapeutic Interventions Therapeutic Interventions Balance Training,Gait Training ,Home Exercise Program,Joint Mobilizations,Manual Therapy, Neuromuscular Re-education, Patient/Caregiver Education, Self-Care/Home Management,Soft Tissue Mobilization,Taping, Therapeutic Activities, Therapeutic Exercises Modalities Cold Pack/Ice Massage,Electric Stimulation,Hot Packs, Ultrasound Next Visit Focus/Plan Next Note Type Treatment Note Next Visit Plan Con't manual work as above and initiate gentle flexibility exercises in supine for hips and legs (hip rotator, hamstring with ankle pump, etc ) Then, progress core and LE strengthening and balance Revisit assessing leg length
--- NOTE | 2024-09-18 11:23 | PT.OTN ---
Current Diagnoses Low back pain, unspecified (09/18/24) Physical Therapy Treatment Note PT-OP-A Visit Information Start: 09/10/24 10:46 Freq: Status: Active Protocol: Document 09/18/24 10:45 SP (Rec: 09/18/24 11:28 SP [id number]) Out-Patient Physical Therapy Visit Information Visit Information Visit Type Treatment Note Visit Note PN by 10/09/24 appt. 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 She was going to [facility] for right shoulder pain. The exercises there might have been too much . She works out at the gym regularly. She had an onset of right SI pain down through the leg that she thinks may be related to changing lifting and working patterns d/t right shoulder. She is currently most concerned about her right hip and not so much the back. Dr. Mcallister may have thought more of a back issue she saw her in June. Ibuprofen and acetaminophen help her pain. Sitting too long makes the pain worse. She has not been going to the gym as much. She is doing light weights. She is just doing the machines. Her balance is a little challenged. She is doing cardio on elliptical and stairs. Pt is sleeping well. Pt denies numbness and tingling in the leg. Prior Treatments and Tests IMPRESSION: Right hip x-ray 07/12/24: Minimal bilateral hip arthrosis. If there is high concern for further derangement, consider MRI evaluation. Probable small intraosseous cyst at the left femoral neck. Treatment Goals Patient/Caregiver Goals To decrease pain. PT-OP-C Subjective Start: 09/10/24 10:46 Freq: Status: Active Protocol: Document 09/18/24 10:45 SP (Rec: 09/18/24 11:28 SP [id number]) OP-PT Subjective Patient Comments Patient Comments Pt reports did well after last tx. She arrives with little tinge of pain over R anterior, lateral posterior R hip. She took some Tylenol and ibuprofen for support, is going shopping after PT so wanted carryover support. She ususally doesn't take before PT so is aware response. PT-OP-G Mobility & Gait Start: 09/10/24 10:46 Freq: Status: Active Protocol: Document 09/10/24 10:45 MB (Rec: 09/10/24 11:25 MB [id number]) OP Gait Assessment Comments Gait Comments Left distal LE with more IR and valgus at knee with more lateral WB on foot, appears to have a functional leg length difference in standing PT-OP-J Posture/Palpation/Skin Start: 09/10/24 10:46 Freq: Status: Active Protocol: Document 09/10/24 10:45 MB (Rec: 09/10/24 11:25 MB [id number]) Posture Evaluation Comments Posture Comments Left distal LE with more IR and valgus at knee with more lateral WB on foot, appears to have a functional leg length difference in standing with LLE mildly longer and left knee mildly flexed. Severe forward head and rounded shoulder and rounded shoulders such that tragus is not anterior to AC joint on the right, Dowager's hump, decreased thoracic kyphosis and right shoulder and scapula are more anteriorly positioned than the left; changes in thoracic and lumbar curvature as well, left iliac crest is mildly higher than the right. Prefers extension with spinal extension to 20 deg in standing with hands on hips and fingers 1 from floor with forward flexion and reports of increased pain in right hip and thigh: SB to the right 10 deg and SB to left 5 deg. Slump: negative B Supine passive SLR: B 70 deg and pt reports discomfort anterior right hip with passive SLR right Pt reports clicking in right hip when she gets up in the morning and then if feels better, pt report stiffness in right hip when she goes to get up Supine SI testing: more stiffness on the left. Pt reports hypermobile usually. Scrios and JEOVANNY B negative for pain. Of note, anterior hip popping with both. PT-OP-K Range of Motion Start: 09/10/24 10:46 Freq: Status: Active Protocol: Document 09/10/24 10:45 MB (Rec: 09/10/24 11:25 MB [id number]) Hip Goniometric Range of Motion Hip ROM Comments Supine ROM: left IR 20 deg and ER at least 60 deg; right hip is similar to the left PT-OP-M Strength Start: 09/10/24 10:46 Freq: Status: Active Protocol: Document 09/10/24 10:45 MB (Rec: 09/10/24 11:25 MB [id number]) Hip Strength Hip Manual Muscle Testing Left Flexion (L2) 4+ Good+ Extension (S1) 4+ Good+ Abduction 4+ Good+ Adduction 4 Good External Rotation 4+ Good+ Internal Rotation 4+ Good+ Right Flexion (L2) 4 Good Extension (S1) 4 Good Abduction 4+ Good+ Adduction 4 Good External Rotation 4- Good- Internal Rotation 3+ Fair+ Comments All MMT in supine today Knee Strength Knee Manual Muscle Testing Left Flexion (S2) 5 Normal Extension (L3) 5 Normal Right Flexion (S2) 5 Normal Extension (L3) 5 Normal Ankle/Foot Strength Ankle and Foot Manual Muscle Testing Left Dorsiflexion (L4) 5 Normal Right Dorsiflexion (L4) 5 Normal Toe Strength Toe Manual Muscle Testing Left Great Toe Extension 5 Normal Right Great Toe Extension 5 Normal PT-OP-Q Treatments Start: 09/10/24 10:46 Freq: Status: Active Protocol: Document 09/18/24 10:45 SP (Rec: 09/18/24 11:28 SP [id number]) Therapeutic Exercises Supine Exercises stretching Supine Exercise Name HS with AP, piriformis, Trip hip flexors Side bilateral Resistance added to HEP with HOs Reps/Minutes HS AP x20 reps, other 2 30 SH x2 each Comments good response decreased tension around R hip Pelvic realignment exercises Supine Exercise Name HEP and handout given Side bilateral Reps/Minutes 5 reps, 3 sec hold all exercises Comments Feet together ball squeeze iso , knee opp ankle iso, thigh press down iso Manual Therapy Treatment Consent Patient gave verbal consent for manual Yes treatment Other Other Manual Treatments manual position release: BLEs supported on wedge. gentle CS paraspinal lateral glide, SOR. B hips: TFL, quad, adductor R tighter than L. PT-OP-T Assessment and Plan Start: 09/10/24 10:46 Freq: Status: Active Protocol: Document 09/18/24 10:45 SP (Rec: 09/18/24 11:28 SP [id number]) Physical Therapy Assessment Goals 3 Impairment Lack of HEP Care Home Goal (LTG) Pt will perform progressive HEP with I including pelvic realignment, postural, flexibility, strengthening and balance exercises to improve quality of life and overall strength. LTG Duration 8 weeks 2 Impairment Hip weakness Care Home Goal (LTG) Pt will present with B hip flexion, abduction, adduction, extension and IR and ER strength to at least 5/5 to improve pain and functional mobility. LTG Duration 8 weeks 1 Impairment C/o right hip and thigh pain Rn Occupational Health Goal (LTG) Pt will report an overall 85% improvement in right hip and thigh pain to improve quality of life. LTG Duration 8 weeks Assessment Summary Assessment Pt responded well to manual. Good gentle stretch response to progressed flexibility hip rotators, hamstring and hip flexors today, cues for slow range, breath, feels good. Physical Therapy Plan Frequency and Duration Frequency of Treatment 1-2x/wk Duration of treatment (weeks) 8 Plan of Care Start Date 09/10/24 Plan of Care End Date 11/10/24 Therapeutic Interventions Therapeutic Interventions Balance Training,Gait Training ,Home Exercise Program,Joint Mobilizations,Manual Therapy, Neuromuscular Re-education, Patient/Caregiver Education, Self-Care/Home Management,Soft Tissue Mobilization,Taping, Therapeutic Activities, Therapeutic Exercises Modalities Cold Pack/Ice Massage,Electric Stimulation,Hot Packs, Ultrasound Next Visit Focus/Plan Next Note Type Treatment Note Next Visit Plan Recheck response to manual and added stretching. Con't manual work as above. If responded well, progress core and LE strengthening and balance Revisit assessing leg length
--- NOTE | 2024-09-25 11:33 | PT.OTN ---
Current Diagnoses Low back pain, unspecified (09/25/24) Physical Therapy Treatment Note PT-OP-A Visit Information Start: 09/10/24 10:46 Freq: Status: Active Protocol: Document 09/25/24 10:47 SP (Rec: 09/25/24 11:34 SP [id number]) Out-Patient Physical Therapy Visit Information Visit Information Visit Type Treatment Note Visit Note PN by 10/09/24 appt. Visit Start Time 10:47 Visit Stop Time 11:33 Visit Number 4 Number of MAJOR GENERAL Visits 2 Evaluation Information Evaluation Date 09/10/24 PT-OP-B Current Condition Start: 09/10/24 10:46 Freq: Status: Active Protocol: Document 09/10/24 10:45 MB (Rec: 09/10/24 11:25 MB [id number]) Current Condition History of Current Condition Onset Date Around November or December 2023 Current Complaints Pain radiating into right thigh when she moves History of Current Condition Pt went to [facility] for PT last year and she wanted to come to hospital for this issue. She was going to [facility] for right shoulder pain. The exercises there might have been too much . She works out at the gym regularly. She had an onset of right SI pain down through the leg that she thinks may be related to changing lifting and working patterns d/t right shoulder. She is currently most concerned about her right hip and not so much the back. Dr. Mcallister may have thought more of a back issue she saw her in June. Ibuprofen and acetaminophen help her pain. Sitting too long makes the pain worse. She has not been going to the gym as much. She is doing light weights. She is just doing the machines. Her balance is a little challenged. She is doing cardio on elliptical and stairs. Pt is sleeping well. Pt denies numbness and tingling in the leg. Prior Treatments and Tests IMPRESSION: Right hip x-ray 07/12/24: Minimal bilateral hip arthrosis. If there is high concern for further derangement, consider MRI evaluation. Probable small intraosseous cyst at the left femoral neck. Treatment Goals Patient/Caregiver Goals To decrease pain. PT-OP-C Subjective Start: 09/10/24 10:46 Freq: Status: Active Protocol: Document 09/25/24 10:47 SP (Rec: 09/25/24 11:34 SP [id number]) OP-PT Subjective Patient Comments Patient Comments Pt is workign on trying to schedule 1day per week. Is taking ibuprofen for assist pain prevention, at gym doing well with elliptical and ab/ add maching 45#> 55# and felt fine but tried SL R leg press and had alot pain just putting R leg up on platform so stopped and stretched went back and stil pain so stopped. She was able to do UE strengthening and decided complete rest time at gym stretching which was fine, couldn't do trip stretch due to no elevated table. She reports performs extension over 65cm Tball at gym for stretching. PT-OP-G Mobility & Gait Start: 09/10/24 10:46 Freq: Status: Active Protocol: Document 09/10/24 10:45 MB (Rec: 09/10/24 11:25 MB [id number]) OP Gait Assessment Comments Gait Comments Left distal LE with more IR and valgus at knee with more lateral WB on foot, appears to have a functional leg length difference in standing PT-OP-J Posture/Palpation/Skin Start: 09/10/24 10:46 Freq: Status: Active Protocol: Document 09/10/24 10:45 MB (Rec: 09/10/24 11:25 MB [id number]) Posture Evaluation Comments Posture Comments Left distal LE with more IR and valgus at knee with more lateral WB on foot, appears to have a functional leg length difference in standing with LLE mildly longer and left knee mildly flexed. Severe forward head and rounded shoulder and rounded shoulders such that tragus is not anterior to AC joint on the right, Dowager's hump, decreased thoracic kyphosis and right shoulder and scapula are more anteriorly positioned than the left; changes in thoracic and lumbar curvature as well, left iliac crest is mildly higher than the right. Prefers extension with spinal extension to 20 deg in standing with hands on hips and fingers 1 from floor with forward flexion and reports of increased pain in right hip and thigh: SB to the right 10 deg and SB to left 5 deg. Slump: negative B Supine passive SLR: B 70 deg and pt reports discomfort anterior right hip with passive SLR right Pt reports clicking in right hip when she gets up in the morning and then if feels better, pt report stiffness in right hip when she goes to get up Supine SI testing: more stiffness on the left. Pt reports hypermobile usually. Vy B negative for pain. Of note, anterior hip popping with both. PT-OP-K Range of Motion Start: 09/10/24 10:46 Freq: Status: Active Protocol: Document 09/10/24 10:45 MB (Rec: 09/10/24 11:25 MB [id number]) Hip Goniometric Range of Motion Hip ROM Comments Supine ROM: left IR 20 deg and ER at least 60 deg; right hip is similar to the left PT-OP-M Strength Start: 09/10/24 10:46 Freq: Status: Active Protocol: Document 09/10/24 10:45 MB (Rec: 09/10/24 11:25 MB [id number]) Hip Strength Hip Manual Muscle Testing Left Flexion (L2) 4+ Good+ Extension (S1) 4+ Good+ Abduction 4+ Good+ Adduction 4 Good External Rotation 4+ Good+ Internal Rotation 4+ Good+ Right Flexion (L2) 4 Good Extension (S1) 4 Good Abduction 4+ Good+ Adduction 4 Good External Rotation 4- Good- Internal Rotation 3+ Fair+ Comments All MMT in supine today Knee Strength Knee Manual Muscle Testing Left Flexion (S2) 5 Normal Extension (L3) 5 Normal Right Flexion (S2) 5 Normal Extension (L3) 5 Normal Ankle/Foot Strength Ankle and Foot Manual Muscle Testing Left Dorsiflexion (L4) 5 Normal Right Dorsiflexion (L4) 5 Normal Toe Strength Toe Manual Muscle Testing Left Great Toe Extension 5 Normal Right Great Toe Extension 5 Normal PT-OP-Q Treatments Start: 09/10/24 10:46 Freq: Status: Active Protocol: Document 09/25/24 10:47 SP (Rec: 09/25/24 11:34 SP [id number]) Therapeutic Exercises Supine Exercises Core Progression Supine Exercise Name TA draw in, hip rolls side, TA heel slide, TA august, Reps/Minutes TA 10 SH x10, rest 10 reps each Comments cued PPT neutral, reported pinching anterior L hip during august lift foot stretching Supine Exercise Name HS with AP, piriformis, Trip stretches, added adductor Side bilateral Reps/Minutes HS AP x20 reps, other 2 x30 SH x2 each Comments good response decreased tension around anterior R hip Other Exercises 1/2 kneel hip flexor stretch Other Exercise Name added to HEP for hip flexor stretch at gym. Side right Resistance R>L Equipment Used kneel pad Reps/Minutes 30 SH can OH reach same side Comments cued no LB arch, contact something nearby Manual Therapy Treatment Consent Patient gave verbal consent for manual Yes treatment Other Other Manual Treatments manual position release: BLEs supported on wedge. R leg: R TFL, prox quad, prox adductor. STMs rolling and MWM hip IR/ER long axis. PT-OP-T Assessment and Plan Start: 09/10/24 10:46 Freq: Status: Active Protocol: Document 09/25/24 10:47 SP (Rec: 09/25/24 11:34 SP [id number]) Physical Therapy Assessment Goals 3 Impairment Lack of HEP Retirement Goal (LTG) Pt will perform progressive HEP with I including pelvic realignment, postural, flexibility, strengthening and balance exercises to improve quality of life and overall strength. LTG Duration 8 weeks 2 Impairment Hip weakness Retirement Goal (LTG) Pt will present with B hip flexion, abduction, adduction, extension and IR and ER strength to at least 5/5 to improve pain and functional mobility. LTG Duration 8 weeks 1 Impairment C/o right hip and thigh pain Php Developer Goal (LTG) Pt will report an overall 85% improvement in right hip and thigh pain to improve quality of life. LTG Duration 8 weeks Assessment Summary Assessment Pt reports improved march and very little tension over anterior R hip after manual and stretching. Tolerated addition of 1/2 kneel hip flexor stretch due to not having proper height bed/table to perform t homas stretch and finds beneficial. Progressed core HEP with cues for PPT maintain during LE mobility with good form, provided HOs. Physical Therapy Plan Frequency and Duration Frequency of Treatment 1-2x/wk Duration of treatment (weeks) 8 Plan of Care Start Date 09/10/24 Plan of Care End Date 11/10/24 Therapeutic Interventions Therapeutic Interventions Balance Training,Gait Training ,Home Exercise Program,Joint Mobilizations,Manual Therapy, Neuromuscular Re-education, Patient/Caregiver Education, Self-Care/Home Management,Soft Tissue Mobilization,Taping, Therapeutic Activities, Therapeutic Exercises Modalities Cold Pack/Ice Massage,Electric Stimulation,Hot Packs, Ultrasound Next Visit Focus/Plan Next Note Type Treatment Note Next Visit Plan Recheck added appts, continue response to manual R anterior hip, stretching and Response to addition of progress core hooklying. Con't manual work as above. Future: add LE strengthening and balance Revisit assessing leg length
--- NOTE | 2024-10-02 08:59 | PT.OTN ---
Current Diagnoses Low back pain, unspecified (10/02/24) Physical Therapy Treatment Note PT-OP-A Visit Information Start: 09/10/24 10:46 Freq: Status: Active Protocol: Document 10/02/24 08:20 MB (Rec: 10/02/24 08:59 MB Desktop) Out-Patient Physical Therapy Visit Information Visit Information Visit Type Treatment Note Visit Note PN by 10/09/24 Visit Start Time 08:20 Visit Stop Time 09:00 Visit Number 5 Number of PROPERTY CONSULTANT Visits 0 Evaluation Information Evaluation Date 09/10/24 PT-OP-B Current Condition Start: 09/10/24 10:46 Freq: Status: Active Protocol: Document 09/10/24 10:45 MB (Rec: 09/10/24 11:25 MB [id number]) Current Condition History of Current Condition Onset Date Around November or December 2023 Current Complaints Pain radiating into right thigh when she moves History of Current Condition Pt went to [facility] for PT last year and she wanted to come to hospital for this issue. She was going to [facility] for right shoulder pain. The exercises there might have been too much . She works out at the gym regularly. She had an onset of right SI pain down through the leg that she thinks may be related to changing lifting and working patterns d/t right shoulder. She is currently most concerned about her right hip and not so much the back. Dr. Mcallister may have thought more of a back issue she saw her in June. Ibuprofen and acetaminophen help her pain. Sitting too long makes the pain worse. She has not been going to the gym as much. She is doing light weights. She is just doing the machines. Her balance is a little challenged. She is doing cardio on elliptical and stairs. Pt is sleeping well. Pt denies numbness and tingling in the leg. Prior Treatments and Tests IMPRESSION: Right hip x-ray 07/12/24: Minimal bilateral hip arthrosis. If there is high concern for further derangement, consider MRI evaluation. Probable small intraosseous cyst at the left femoral neck. Treatment Goals Patient/Caregiver Goals To decrease pain. PT-OP-C Subjective Start: 09/10/24 10:46 Freq: Status: Active Protocol: Document 10/02/24 08:20 MB (Rec: 10/02/24 08:59 MB Desktop) OP-PT Subjective Patient Comments Patient Comments Pt is still taking ibuprofen throughout the day for right hip pain. Pain is worse in the morning. PT-OP-G Mobility & Gait Start: 09/10/24 10:46 Freq: Status: Active Protocol: Document 09/10/24 10:45 MB (Rec: 09/10/24 11:25 MB [id number]) OP Gait Assessment Comments Gait Comments Left distal LE with more IR and valgus at knee with more lateral WB on foot, appears to have a functional leg length difference in standing PT-OP-J Posture/Palpation/Skin Start: 09/10/24 10:46 Freq: Status: Active Protocol: Document 09/10/24 10:45 MB (Rec: 09/10/24 11:25 MB [id number]) Posture Evaluation Comments Posture Comments Left distal LE with more IR and valgus at knee with more lateral WB on foot, appears to have a functional leg length difference in standing with LLE mildly longer and left knee mildly flexed. Severe forward head and rounded shoulder and rounded shoulders such that tragus is not anterior to AC joint on the right, Dowager's hump, decreased thoracic kyphosis and right shoulder and scapula are more anteriorly positioned than the left; changes in thoracic and lumbar curvature as well, left iliac crest is mildly higher than the right. Prefers extension with spinal extension to 20 deg in standing with hands on hips and fingers 1 from floor with forward flexion and reports of increased pain in right hip and thigh: SB to the right 10 deg and SB to left 5 deg. Slump: negative B Supine passive SLR: B 70 deg and pt reports discomfort anterior right hip with passive SLR right Pt reports clicking in right hip when she gets up in the morning and then if feels better, pt report stiffness in right hip when she goes to get up Supine SI testing: more stiffness on the left. Pt reports hypermobile usually. Scour and JEOVANNY B negative for pain. Of note, anterior hip popping with both. PT-OP-K Range of Motion Start: 09/10/24 10:46 Freq: Status: Active Protocol: Document 09/10/24 10:45 MB (Rec: 09/10/24 11:25 MB [id number]) Hip Goniometric Range of Motion Hip ROM Comments Supine ROM: left IR 20 deg and ER at least 60 deg; right hip is similar to the left PT-OP-M Strength Start: 09/10/24 10:46 Freq: Status: Active Protocol: Document 09/10/24 10:45 MB (Rec: 09/10/24 11:25 MB [id number]) Hip Strength Hip Manual Muscle Testing Left Flexion (L2) 4+ Good+ Extension (S1) 4+ Good+ Abduction 4+ Good+ Adduction 4 Good External Rotation 4+ Good+ Internal Rotation 4+ Good+ Right Flexion (L2) 4 Good Extension (S1) 4 Good Abduction 4+ Good+ Adduction 4 Good External Rotation 4- Good- Internal Rotation 3+ Fair+ Comments All MMT in supine today Knee Strength Knee Manual Muscle Testing Left Flexion (S2) 5 Normal Extension (L3) 5 Normal Right Flexion (S2) 5 Normal Extension (L3) 5 Normal Ankle/Foot Strength Ankle and Foot Manual Muscle Testing Left Dorsiflexion (L4) 5 Normal Right Dorsiflexion (L4) 5 Normal Toe Strength Toe Manual Muscle Testing Left Great Toe Extension 5 Normal Right Great Toe Extension 5 Normal PT-OP-Q Treatments Start: 09/10/24 10:46 Freq: Status: Active Protocol: Document 10/02/24 08:20 MB (Rec: 10/02/24 08:59 MB Desktop) Therapeutic Exercises Supine Exercises stretching Supine Exercise Name Hip rotator stretching Side bilateral Comments Several reps on each leg today Standing Exercises Doorway stretches for hip flexor, calf, QL and pect Standing Exercise Name HEP and provided handout today , calf stretch is not on it Side bilateral Equipment Used Used office doorway Comments Cues to find where she is tight, hang out there and breathe Manual Therapy Treatment Consent Patient gave verbal consent for manual Yes treatment Other Other Manual Treatments Pt supine with head and legs supported: STM and positional release left hip flexor, B rectus femoris, adductors, TFL , vastus lateralis and most tension in left QL and right TFL and glute min, TrP right glute min and TFL and pt tolerates treatment well. Self-Care/Home Management Treatment Education Other Education Education about stretching and walking today after manual treatment, work on hydration and pt states she is supposed to have 90 oz a day and she is currently only getting 64 oz and so encouraged pt to keep bottles with her and keep them empty PT-OP-T Assessment and Plan Start: 09/10/24 10:46 Freq: Status: Active Protocol: Document 10/02/24 08:20 MB (Rec: 10/02/24 08:59 MB Desktop) Physical Therapy Assessment Goals 3 Impairment Lack of HEP Intermediate Goal (LTG) Pt will perform progressive HEP with I including pelvic realignment, postural, flexibility, strengthening and balance exercises to improve quality of life and overall strength. LTG Duration 8 weeks 2 Impairment Hip weakness Pelletizer Tender Goal (LTG) Pt will present with B hip flexion, abduction, adduction, extension and IR and ER strength to at least 5/5 to improve pain and functional mobility. LTG Duration 8 weeks 1 Impairment C/o right hip and thigh pain Intermediate Goal (LTG) Pt will report an overall 85% improvement in right hip and thigh pain to improve quality of life. LTG Duration 8 weeks Assessment Summary Assessment Right hip pain worse in the morning and with deep squat machine at gym concerns PT about anatomical change and so will con't to monitor. Pt feels better after manual work today and gait afterwards feels better. Physical Therapy Plan Frequency and Duration Frequency of Treatment 1-2x/wk Duration of treatment (weeks) 8 Plan of Care Start Date 09/10/24 Plan of Care End Date 11/10/24 Therapeutic Interventions Therapeutic Interventions Balance Training,Gait Training ,Home Exercise Program,Joint Mobilizations,Manual Therapy, Neuromuscular Re-education, Patient/Caregiver Education, Self-Care/Home Management,Soft Tissue Mobilization,Taping, Therapeutic Activities, Therapeutic Exercises Modalities Cold Pack/Ice Massage,Electric Stimulation,Hot Packs, Ultrasound Next Visit Focus/Plan Next Note Type Treatment Note Next Visit Plan Con't manual work as needed. Future: add LE strengthening and balance Revisit assessing leg length Assess ongoing progress vs possible diagnostic rec/ referral to ortho
--- NOTE | 2024-10-09 13:11 | PT-OP ANOTE ---
PT read that pt canceled appointment today d/t having to put her dog down. PT calls pt to provide encouragement and to listen. Pt talks some and PT listens. Will con't PT per plan in future appointments.
--- NOTE | 2024-10-16 12:18 | PT.OTN ---
Current Diagnoses Low back pain, unspecified (10/16/24) Physical Therapy Treatment Note PT-OP-A Visit Information Start: 09/10/24 10:46 Freq: Status: Active Protocol: Document 10/16/24 11:35 SP (Rec: 10/16/24 12:24 SP [id number]) Out-Patient Physical Therapy Visit Information Visit Information Visit Type Treatment Note Visit Note PN by 10/22/24 (extended date due to 2 cancelling appts) MYLENE Alvarez observed tx and provided timing of bal activities during tx while under supervision of SEVERINO Fierro. Visit Start Time 11:35 Visit Stop Time 12:18 Visit Number 6 Number of COLLAR PACKER Visits 1 PT-OP-B Current Condition Start: 09/10/24 10:46 Freq: Status: Active Protocol: Document 09/10/24 10:45 MB (Rec: 09/10/24 11:25 MB [id number]) Current Condition History of Current Condition Onset Date Around November or December 2023 Current Complaints Pain radiating into right thigh when she moves History of Current Condition Pt went to [facility] for PT last year and she wanted to come to hospital for this issue. She was going to [facility] for right shoulder pain. The exercises there might have been too much . She works out at the gym regularly. She had an onset of right SI pain down through the leg that she thinks may be related to changing lifting and working patterns d/t right shoulder. She is currently most concerned about her right hip and not so much the back. Dr. Mcallister may have thought more of a back issue she saw her in June. Ibuprofen and acetaminophen help her pain. Sitting too long makes the pain worse. She has not been going to the gym as much. She is doing light weights. She is just doing the machines. Her balance is a little challenged. She is doing cardio on elliptical and stairs. Pt is sleeping well. Pt denies numbness and tingling in the leg. Prior Treatments and Tests IMPRESSION: Right hip x-ray 07/12/24: Minimal bilateral hip arthrosis. If there is high concern for further derangement, consider MRI evaluation. Probable small intraosseous cyst at the left femoral neck. Treatment Goals Patient/Caregiver Goals To decrease pain. PT-OP-C Subjective Start: 09/10/24 10:46 Freq: Status: Active Protocol: Document 10/16/24 11:35 SP (Rec: 10/16/24 12:24 SP [id number]) OP-PT Subjective Patient Comments Patient Comments Pt reported felt little more range after last tx with manual therapy. She notices no back pain for past couple days but arrival mostly R hip posterolateral down lateral R thigh. Is compliant with stretching. PT-OP-G Mobility & Gait Start: 09/10/24 10:46 Freq: Status: Active Protocol: Document 09/10/24 10:45 MB (Rec: 09/10/24 11:25 MB [id number]) OP Gait Assessment Comments Gait Comments Left distal LE with more IR and valgus at knee with more lateral WB on foot, appears to have a functional leg length difference in standing PT-OP-J Posture/Palpation/Skin Start: 09/10/24 10:46 Freq: Status: Active Protocol: Document 09/10/24 10:45 MB (Rec: 09/10/24 11:25 MB [id number]) Posture Evaluation Comments Posture Comments Left distal LE with more IR and valgus at knee with more lateral WB on foot, appears to have a functional leg length difference in standing with LLE mildly longer and left knee mildly flexed. Severe forward head and rounded shoulder and rounded shoulders such that tragus is not anterior to AC joint on the right, Dowager's hump, decreased thoracic kyphosis and right shoulder and scapula are more anteriorly positioned than the left; changes in thoracic and lumbar curvature as well, left iliac crest is mildly higher than the right. Prefers extension with spinal extension to 20 deg in standing with hands on hips and fingers 1 from floor with forward flexion and reports of increased pain in right hip and thigh: SB to the right 10 deg and SB to left 5 deg. Slump: negative B Supine passive SLR: B 70 deg and pt reports discomfort anterior right hip with passive SLR right Pt reports clicking in right hip when she gets up in the morning and then if feels better, pt report stiffness in right hip when she goes to get up Supine SI testing: more stiffness on the left. Pt reports hypermobile usually. Scrios and JEOVANNY B negative for pain. Of note, anterior hip popping with both. PT-OP-K Range of Motion Start: 09/10/24 10:46 Freq: Status: Active Protocol: Document 09/10/24 10:45 MB (Rec: 09/10/24 11:25 MB [id number]) Hip Goniometric Range of Motion Hip ROM Comments Supine ROM: left IR 20 deg and ER at least 60 deg; right hip is similar to the left PT-OP-M Strength Start: 09/10/24 10:46 Freq: Status: Active Protocol: Document 09/10/24 10:45 MB (Rec: 09/10/24 11:25 MB [id number]) Hip Strength Hip Manual Muscle Testing Left Flexion (L2) 4+ Good+ Extension (S1) 4+ Good+ Abduction 4+ Good+ Adduction 4 Good External Rotation 4+ Good+ Internal Rotation 4+ Good+ Right Flexion (L2) 4 Good Extension (S1) 4 Good Abduction 4+ Good+ Adduction 4 Good External Rotation 4- Good- Internal Rotation 3+ Fair+ Comments All MMT in supine today Knee Strength Knee Manual Muscle Testing Left Flexion (S2) 5 Normal Extension (L3) 5 Normal Right Flexion (S2) 5 Normal Extension (L3) 5 Normal Ankle/Foot Strength Ankle and Foot Manual Muscle Testing Left Dorsiflexion (L4) 5 Normal Right Dorsiflexion (L4) 5 Normal Toe Strength Toe Manual Muscle Testing Left Great Toe Extension 5 Normal Right Great Toe Extension 5 Normal PT-OP-Q Treatments Start: 09/10/24 10:46 Freq: Status: Active Protocol: Document 10/16/24 11:35 SP (Rec: 10/16/24 12:24 SP [id number]) Therapeutic Exercises Supine Exercises Resisted hip roll out Supine Exercise Name added resistance to HEp, declined HO Resistance Tb #2 teal around thighs Reps/Minutes 10 reps double, 10 single each side Comments good neutral pelvis, cued slower eccentric control Core Progression Supine Exercise Name TA hip roll outs Reps/Minutes 10 reps warm up Comments cued level pelvis during range stretching Supine Exercise Name Hip rotator stretching (IR & ER) Side bilateral Resistance ankle supported over knee hooklying Reps/Minutes 30 sec x3 each direction Comments good feedback response Sitting Exercises Hip IR & ER Sitting Exercise Name added to HEP with HO Side bilateral Equipment Used Tb #1 light blue anchored to other LE IR, to chair ER Reps/Minutes 10 reps each Comments ball between knees for alignment, good gentle effort response feels good Standing Exercises Doorway stretches for hip flexor, calf, QL and pect Standing Exercise Name Reviewed: hip flexor and calf stretch- declined HO Side bilateral Equipment Used Used office doorway Reps/Minutes 30 sec each and Killian Comments Cues for heel down calf stretch, heel up anterior hip stretch Neuro Re-Education Treatment Balance Activities SLS Details added to HEP declined HO Comments R 33 sec L 61 sec Tandem stance Details added to HEP declined HO Comments L front 37 sec before needed contact R front 60 sec without UE contact PT-OP-T Assessment and Plan Start: 09/10/24 10:46 Freq: Status: Active Protocol: Document 10/16/24 11:35 SP (Rec: 10/16/24 12:24 SP [id number]) Physical Therapy Assessment Goals 3 Impairment Lack of HEP Event Av Operator Goal (LTG) Pt will perform progressive HEP with I including pelvic realignment, postural, flexibility, strengthening and balance exercises to improve quality of life and overall strength. LTG Duration 8 weeks 2 Impairment Hip weakness Event Av Operator Goal (LTG) Pt will present with B hip flexion, abduction, adduction, extension and IR and ER strength to at least 5/5 to improve pain and functional mobility. LTG Duration 8 weeks 1 Impairment C/o right hip and thigh pain Correction Goal (LTG) Pt will report an overall 85% improvement in right hip and thigh pain to improve quality of life. LTG Duration 8 weeks Assessment Summary Assessment Pt improved pelvic alignment corrections during TA hip rolls and addition to resistance today with cues just for eccentric control and no pain reported. Pt responded well to progression in bal tandem with HTs and SLS PRN doorway and addition of resisted hip IR and ER seated today for LE strengthening. Pt reports her R hip feels better end tx. Physical Therapy Plan Frequency and Duration Frequency of Treatment 1-2x/wk Duration of treatment (weeks) 8 Plan of Care Start Date 09/10/24 Plan of Care End Date 11/10/24 Therapeutic Interventions Therapeutic Interventions Balance Training,Gait Training ,Home Exercise Program,Joint Mobilizations,Manual Therapy, Neuromuscular Re-education, Patient/Caregiver Education, Self-Care/Home Management,Soft Tissue Mobilization,Taping, Therapeutic Activities, Therapeutic Exercises Modalities Cold Pack/Ice Massage,Electric Stimulation,Hot Packs, Ultrasound Next Visit Focus/Plan Next Note Type Treatment Note Next Visit Plan Recheck added seated resisted hip IR/ER, TB to knee fall out , tandem with HTs and SLS to HEP. Con't manual work as needed. Future: progress standing LE strengthening and balance Revisit assessing leg length Assess ongoing progress vs possible diagnostic rec/ referral to ortho
--- NOTE | 2024-10-22 11:27 | PT.OTN ---
Current Diagnoses Low back pain, unspecified (10/22/24) Physical Therapy Treatment Note PT-OP-A Visit Information Start: 09/10/24 10:46 Freq: Status: Active Protocol: Document 10/22/24 10:47 MB (Rec: 10/22/24 11:24 MB Desktop) Out-Patient Physical Therapy Visit Information Visit Information Visit Type Progress Note Visit Start Time 10:47 Visit Stop Time 11:27 Visit Number 7 Number of DIRECT MAIL CLERK Visits 0 Evaluation Information Evaluation Date 09/10/24 PT-OP-B Current Condition Start: 09/10/24 10:46 Freq: Status: Active Protocol: Document 09/10/24 10:45 MB (Rec: 09/10/24 11:25 MB [id number]) Current Condition History of Current Condition Onset Date Around November or December 2023 Current Complaints Pain radiating into right thigh when she moves History of Current Condition Pt went to [facility] for PT last year and she wanted to come to hospital for this issue. She was going to [facility] for right shoulder pain. The exercises there might have been too much . She works out at the gym regularly. She had an onset of right SI pain down through the leg that she thinks may be related to changing lifting and working patterns d/t right shoulder. She is currently most concerned about her right hip and not so much the back. Dr. Mcallister may have thought more of a back issue she saw her in June. Ibuprofen and acetaminophen help her pain. Sitting too long makes the pain worse. She has not been going to the gym as much. She is doing light weights. She is just doing the machines. Her balance is a little challenged. She is doing cardio on elliptical and stairs. Pt is sleeping well. Pt denies numbness and tingling in the leg. Prior Treatments and Tests IMPRESSION: Right hip x-ray 07/12/24: Minimal bilateral hip arthrosis. If there is high concern for further derangement, consider MRI evaluation. Probable small intraosseous cyst at the left femoral neck. Treatment Goals Patient/Caregiver Goals To decrease pain. PT-OP-C Subjective Start: 09/10/24 10:46 Freq: Status: Active Protocol: Document 10/22/24 10:47 MB (Rec: 10/22/24 11:24 MB Desktop) OP-PT Subjective Patient Comments Patient Comments Right hip pain comes and goes and depends on what she is doing during the day. Standing more is problematic. She has not been to the gym in 2 weeks d/t grief and activities at home. Pt reports a 30% improvement in right hip pain since starting PT. PT-OP-G Mobility & Gait Start: 09/10/24 10:46 Freq: Status: Active Protocol: Document 09/10/24 10:45 MB (Rec: 09/10/24 11:25 MB [id number]) OP Gait Assessment Comments Gait Comments Left distal LE with more IR and valgus at knee with more lateral WB on foot, appears to have a functional leg length difference in standing PT-OP-J Posture/Palpation/Skin Start: 09/10/24 10:46 Freq: Status: Active Protocol: Document 09/10/24 10:45 MB (Rec: 09/10/24 11:25 MB [id number]) Posture Evaluation Comments Posture Comments Left distal LE with more IR and valgus at knee with more lateral WB on foot, appears to have a functional leg length difference in standing with LLE mildly longer and left knee mildly flexed. Severe forward head and rounded shoulder and rounded shoulders such that tragus is not anterior to AC joint on the right, Dowager's hump, decreased thoracic kyphosis and right shoulder and scapula are more anteriorly positioned than the left; changes in thoracic and lumbar curvature as well, left iliac crest is mildly higher than the right. Prefers extension with spinal extension to 20 deg in standing with hands on hips and fingers 1 from floor with forward flexion and reports of increased pain in right hip and thigh: SB to the right 10 deg and SB to left 5 deg. Slump: negative B Supine passive SLR: B 70 deg and pt reports discomfort anterior right hip with passive SLR right Pt reports clicking in right hip when she gets up in the morning and then if feels better, pt report stiffness in right hip when she goes to get up Supine SI testing: more stiffness on the left. Pt reports hypermobile usually. Vy B negative for pain. Of note, anterior hip popping with both. PT-OP-K Range of Motion Start: 09/10/24 10:46 Freq: Status: Active Protocol: Document 09/10/24 10:45 MB (Rec: 09/10/24 11:25 MB [id number]) Hip Goniometric Range of Motion Hip ROM Comments Supine ROM: left IR 20 deg and ER at least 60 deg; right hip is similar to the left PT-OP-M Strength Start: 09/10/24 10:46 Freq: Status: Active Protocol: Document 09/10/24 10:45 MB (Rec: 09/10/24 11:25 MB [id number]) Hip Strength Hip Manual Muscle Testing Left Flexion (L2) 4+ Good+ Extension (S1) 4+ Good+ Abduction 4+ Good+ Adduction 4 Good External Rotation 4+ Good+ Internal Rotation 4+ Good+ Right Flexion (L2) 4 Good Extension (S1) 4 Good Abduction 4+ Good+ Adduction 4 Good External Rotation 4- Good- Internal Rotation 3+ Fair+ Comments All MMT in supine today Knee Strength Knee Manual Muscle Testing Left Flexion (S2) 5 Normal Extension (L3) 5 Normal Right Flexion (S2) 5 Normal Extension (L3) 5 Normal Ankle/Foot Strength Ankle and Foot Manual Muscle Testing Left Dorsiflexion (L4) 5 Normal Right Dorsiflexion (L4) 5 Normal Toe Strength Toe Manual Muscle Testing Left Great Toe Extension 5 Normal Right Great Toe Extension 5 Normal PT-OP-Q Treatments Start: 09/10/24 10:46 Freq: Status: Active Protocol: Document 10/22/24 10:47 MB (Rec: 10/22/24 11:24 MB Desktop) Therapeutic Exercises Other Exercises HEP review on progress note Comments Performed today and MMT under goals Manual Therapy Treatment Consent Patient gave verbal consent for manual Yes treatment Other Other Manual Treatments Pt supine with head and legs supported: STM and positional release right rectus proximally and distally, TFL, hip rotators, hamstrings, vastus lateralis, TrP right TFL and distal rectus, sacral positional release for glutes and TFL, sacral ligaments in supine PT-OP-T Assessment and Plan Start: 09/10/24 10:46 Freq: Status: Active Protocol: Document 10/22/24 10:47 MB (Rec: 10/22/24 11:24 MB Desktop) Physical Therapy Assessment Goals 3 Impairment Lack of HEP Out And Out Cigar Maker Hand Goal (LTG) Pt will perform progressive HEP with I including pelvic realignment, postural, flexibility, strengthening and balance exercises to improve quality of life and overall strength. 10/22/24: Pt is performing HEP exercises. LTG Duration 7 weeks 2 Impairment Hip weakness Out And Out Cigar Maker Hand Goal (LTG) Pt will present with B hip flexion, abduction, adduction, extension and IR and ER strength to at least 5/5 to improve pain and functional mobility. 10/22/24: Pt supine: right hip: flexion, abduction and adduction 5/5 and ER and IR 4+ /5; left hip: flexion and adduction 4+/5, abduction 5/5, ER and IR 4+/5. LTG Duration 7 weeks 1 Impairment C/o right hip and thigh pain Out And Out Cigar Maker Hand Goal (LTG) Pt will report an overall 85% improvement in right hip and thigh pain to improve quality of life. 10/22/24: Pt reports an overall 30% improvement in right hip pain since starting PT. LTG Duration 7 weeks Assessment Summary Assessment Pt is doing HEP and has not been to the gym in 2 weeks after dog and her kids are home from college. She reports 30% improvement in right hip pain since starting PT. She may benefit from ortho consult at d/c to check out lumbar spine and right hip . PT is favoring right hip joint as origin of pain at this time. Of note, right hip MMT today is stronger than the left and she has made some progress with this. Physical Therapy Plan Frequency and Duration Frequency of Treatment 1-2x/wk Duration of treatment (weeks) 7 Plan of Care Start Date 10/22/24 Plan of Care End Date 12/09/24 Therapeutic Interventions Therapeutic Interventions Balance Training,Gait Training ,Home Exercise Program,Joint Mobilizations,Manual Therapy, Neuromuscular Re-education, Patient/Caregiver Education, Self-Care/Home Management,Soft Tissue Mobilization,Taping, Therapeutic Activities, Therapeutic Exercises Modalities Cold Pack/Ice Massage,Electric Stimulation,Hot Packs, Ultrasound Next Visit Focus/Plan Next Note Type Treatment Note Next Visit Plan Similar: Recheck added seated resisted hip IR/ER, TB to knee fall out, tandem with HTs and SLS to HEP. Con't manual work as needed, progress standing LE strengthening and balance including hip abduction and extension in standing with band or ankle weights, side stepping and backwards walking , consider bridging with band, standing wall slides for quads and core with band around legs Revisit assessing leg length Assess ongoing progress vs possible diagnostic rec/ referral to ortho
--- NOTE | 2024-10-22 11:29 | PT.OPPOC ---
Physical, Occupational & Speech Therapy At [facility] Current Diagnoses Low back pain, unspecified (10/22/24) Visit Care Team Role Provider Type Jonelle Mcallister MD Attending Provider Physician Family Provider Primary Care Provider Referring Provider Specialty: Family Practice Address: [address] [place] [address], [facility] Email: [email or web address] Plan Of Care PT-OP-B Current Condition Start: 09/10/24 10:46 Freq: Status: Active Protocol: Document 09/10/24 10:45 MB (Rec: 09/10/24 11:25 MB [id number]) Current Condition History of Current Condition Onset Date Around November or December 2023 Current Complaints Pain radiating into right thigh when she moves History of Current Condition Pt went to [facility] for PT last year and she wanted to come to hospital for this issue. She was going to [facility] for right shoulder pain. The exercises there might have been too much . She works out at the gym regularly. She had an onset of right SI pain down through the leg that she thinks may be related to changing lifting and working patterns d/t right shoulder. She is currently most concerned about her right hip and not so much the back. Dr. Mcallister may have thought more of a back issue she saw her in June. Ibuprofen and acetaminophen help her pain. Sitting too long makes the pain worse. She has not been going to the gym as much. She is doing light weights. She is just doing the machines. Her balance is a little challenged. She is doing cardio on elliptical and stairs. Pt is sleeping well. Pt denies numbness and tingling in the leg. Prior Treatments and Tests IMPRESSION: Right hip x-ray 07/12/24: Minimal bilateral hip arthrosis. If there is high concern for further derangement, consider MRI evaluation. Probable small intraosseous cyst at the left femoral neck. Treatment Goals Patient/Caregiver Goals To decrease pain. PT-OP-T Assessment and Plan Start: 09/10/24 10:46 Freq: Status: Active Protocol: Document 10/22/24 10:47 MB (Rec: 10/22/24 11:24 MB Desktop) Physical Therapy Assessment Goals 3 Impairment Lack of HEP Cardiovascular Invasive Specialist Goal (LTG) Pt will perform progressive HEP with I including pelvic realignment, postural, flexibility, strengthening and balance exercises to improve quality of life and overall strength. 10/22/24: Pt is performing HEP exercises. LTG Duration 7 weeks 2 Impairment Hip weakness Cardiovascular Invasive Specialist Goal (LTG) Pt will present with B hip flexion, abduction, adduction, extension and IR and ER strength to at least 5/5 to improve pain and functional mobility. 10/22/24: Pt supine: right hip: flexion, abduction and adduction 5/5 and ER and IR 4+ /5; left hip: flexion and adduction 4+/5, abduction 5/5, ER and IR 4+/5. LTG Duration 7 weeks 1 Impairment C/o right hip and thigh pain Cardiovascular Invasive Specialist Goal (LTG) Pt will report an overall 85% improvement in right hip and thigh pain to improve quality of life. 10/22/24: Pt reports an overall 30% improvement in right hip pain since starting PT. LTG Duration 7 weeks Assessment Summary Assessment Pt is doing HEP and has not been to the gym in 2 weeks after dog and her kids are home from college. She reports 30% improvement in right hip pain since starting PT. She may benefit from ortho consult at d/c to check out lumbar spine and right hip . PT is favoring right hip joint as origin of pain at this time. Of note, right hip MMT today is stronger than the left and she has made some progress with this. Physical Therapy Plan Frequency and Duration Frequency of Treatment 1-2x/wk Duration of treatment (weeks) 7 Plan of Care Start Date 10/22/24 Plan of Care End Date 12/09/24 Therapeutic Interventions Therapeutic Interventions Balance Training,Gait Training ,Home Exercise Program,Joint Mobilizations,Manual Therapy, Neuromuscular Re-education, Patient/Caregiver Education, Self-Care/Home Management,Soft Tissue Mobilization,Taping, Therapeutic Activities, Therapeutic Exercises Modalities Cold Pack/Ice Massage,Electric Stimulation,Hot Packs, Ultrasound Next Visit Focus/Plan Next Note Type Treatment Note Next Visit Plan Similar: Recheck added seated resisted hip IR/ER, TB to knee fall out, tandem with HTs and SLS to HEP. Con't manual work as needed, progress standing LE strengthening and balance including hip abduction and extension in standing with band or ankle weights, side stepping and backwards walking , consider bridging with band, standing wall slides for quads and core with band around legs Revisit assessing leg length Assess ongoing progress vs possible diagnostic rec/ referral to ortho Plan of Care Dates Plan of Care Start Date 10/22/24 Plan of Care End Date 12/09/24 Electronically Signed by: Lary Hobbs, PT 10/22/24 0141 If you are in agreement with this Plan of Care, please return a signed and dated copy. I have reviewed this Plan of Care and certify that the skilled therapy services above are required to meet the patient?s needs. Physician Signature Date Printed Name and Credentials Clinical Instructor Signature Printed Name and Credentials
--- NOTE | 2024-11-04 10:30 | PT.OTN ---
Current Diagnoses Low back pain, unspecified (11/04/24) Physical Therapy Treatment Note PT-OP-A Visit Information Start: 09/10/24 10:46 Freq: Status: Active Protocol: Document 11/04/24 09:49 SP (Rec: 11/04/24 10:37 SP [id number]) Out-Patient Physical Therapy Visit Information Visit Information Visit Type Treatment Note Visit Note PN by 11/21 Visit Start Time 09:50 Visit Stop Time 10:30 Visit Number 8 Number of STEEL CRANE OPERATOR Visits 1 PT-OP-B Current Condition Start: 09/10/24 10:46 Freq: Status: Active Protocol: Document 09/10/24 10:45 MB (Rec: 09/10/24 11:25 MB [id number]) Current Condition History of Current Condition Onset Date Around November or December 2023 Current Complaints Pain radiating into right thigh when she moves History of Current Condition Pt went to [facility] for PT last year and she wanted to come to hospital for this issue. She was going to [facility] for right shoulder pain. The exercises there might have been too much . She works out at the gym regularly. She had an onset of right SI pain down through the leg that she thinks may be related to changing lifting and working patterns d/t right shoulder. She is currently most concerned about her right hip and not so much the back. Dr. Mcallister may have thought more of a back issue she saw her in June. Ibuprofen and acetaminophen help her pain. Sitting too long makes the pain worse. She has not been going to the gym as much. She is doing light weights. She is just doing the machines. Her balance is a little challenged. She is doing cardio on elliptical and stairs. Pt is sleeping well. Pt denies numbness and tingling in the leg. Prior Treatments and Tests IMPRESSION: Right hip x-ray 07/12/24: Minimal bilateral hip arthrosis. If there is high concern for further derangement, consider MRI evaluation. Probable small intraosseous cyst at the left femoral neck. Treatment Goals Patient/Caregiver Goals To decrease pain. PT-OP-C Subjective Start: 09/10/24 10:46 Freq: Status: Active Protocol: Document 11/04/24 09:49 SP (Rec: 11/04/24 10:37 SP [id number]) OP-PT Subjective Patient Comments Patient Comments Pt reports doing well after PT and no issues with HEP. She stated did some walking yesterday in [place] after breakfast and did well no pain , moving is better. She states pain in R hip less pain but still there mainly when standing still like washing dishes. PT-OP-G Mobility & Gait Start: 09/10/24 10:46 Freq: Status: Active Protocol: Document 09/10/24 10:45 MB (Rec: 09/10/24 11:25 MB [id number]) OP Gait Assessment Comments Gait Comments Left distal LE with more IR and valgus at knee with more lateral WB on foot, appears to have a functional leg length difference in standing PT-OP-J Posture/Palpation/Skin Start: 09/10/24 10:46 Freq: Status: Active Protocol: Document 09/10/24 10:45 MB (Rec: 09/10/24 11:25 MB [id number]) Posture Evaluation Comments Posture Comments Left distal LE with more IR and valgus at knee with more lateral WB on foot, appears to have a functional leg length difference in standing with LLE mildly longer and left knee mildly flexed. Severe forward head and rounded shoulder and rounded shoulders such that tragus is not anterior to AC joint on the right, Dowager's hump, decreased thoracic kyphosis and right shoulder and scapula are more anteriorly positioned than the left; changes in thoracic and lumbar curvature as well, left iliac crest is mildly higher than the right. Prefers extension with spinal extension to 20 deg in standing with hands on hips and fingers 1 from floor with forward flexion and reports of increased pain in right hip and thigh: SB to the right 10 deg and SB to left 5 deg. Slump: negative B Supine passive SLR: B 70 deg and pt reports discomfort anterior right hip with passive SLR right Pt reports clicking in right hip when she gets up in the morning and then if feels better, pt report stiffness in right hip when she goes to get up Supine SI testing: more stiffness on the left. Pt reports hypermobile usually. Vy B negative for pain. Of note, anterior hip popping with both. PT-OP-K Range of Motion Start: 09/10/24 10:46 Freq: Status: Active Protocol: Document 09/10/24 10:45 MB (Rec: 09/10/24 11:25 MB [id number]) Hip Goniometric Range of Motion Hip ROM Comments Supine ROM: left IR 20 deg and ER at least 60 deg; right hip is similar to the left PT-OP-M Strength Start: 09/10/24 10:46 Freq: Status: Active Protocol: Document 09/10/24 10:45 MB (Rec: 09/10/24 11:25 MB [id number]) Hip Strength Hip Manual Muscle Testing Left Flexion (L2) 4+ Good+ Extension (S1) 4+ Good+ Abduction 4+ Good+ Adduction 4 Good External Rotation 4+ Good+ Internal Rotation 4+ Good+ Right Flexion (L2) 4 Good Extension (S1) 4 Good Abduction 4+ Good+ Adduction 4 Good External Rotation 4- Good- Internal Rotation 3+ Fair+ Comments All MMT in supine today Knee Strength Knee Manual Muscle Testing Left Flexion (S2) 5 Normal Extension (L3) 5 Normal Right Flexion (S2) 5 Normal Extension (L3) 5 Normal Ankle/Foot Strength Ankle and Foot Manual Muscle Testing Left Dorsiflexion (L4) 5 Normal Right Dorsiflexion (L4) 5 Normal Toe Strength Toe Manual Muscle Testing Left Great Toe Extension 5 Normal Right Great Toe Extension 5 Normal PT-OP-Q Treatments Start: 09/10/24 10:46 Freq: Status: Active Protocol: Document 11/04/24 09:49 SP (Rec: 11/04/24 10:37 SP [id number]) Therapeutic Exercises Supine Exercises Resisted hip roll out Supine Exercise Name Reviewed Side bilateral Resistance Tb #2 teal around thighs Reps/Minutes 3x10 Comments good form, no pain, just good muscle tiring Core Progression Supine Exercise Name Bridge with band Resistance Tb #2 teal around thighs Reps/Minutes 20 reps Comments good form, no pain, just good muscle tiring Sitting Exercises Hip IR & ER Sitting Exercise Name Reviewed Side bilateral Resistance Tb #1 light blue anchored to other LE IR, to chair ER ( check TB #2 next tx) Equipment Used small yellow ball between knees Reps/Minutes 3x10 reps each Comments good tiring response feels good Standing Exercises HIp Extension Standing Exercise Name added to HEP with HO Resistance Tb #2 teal at ankles Equipment Used counter contact Reps/Minutes 10 reps Comments cued head up, just range muscle engagement Hip Abduction Standing Exercise Name added to HEP with HO Side bilateral Resistance TB #2 teal at ankles Equipment Used counter contact Reps/Minutes 10 reps Comments cued head up, just range muscle engagement Doorway stretches for hip flexor, calf, QL and pect Standing Exercise Name Reviewed: hip flexor and calf stretch- (declined HO) Side bilateral Equipment Used Used office doorway Reps/Minutes 30 sec each and Killian Comments Cues for heel down calf stretch, heel up anterior hip stretch Neuro Re-Education Treatment Balance Activities Dynamic Walking Details Forward & Backward Walking with HTs & Tandem walking, EC fwd - added to HEP Comments hand wrote on provided HO -occasional hip IR on R almost scissor stepping, improved with reps BLE more midline. SLS Details Reviewed (declined HO) Equipment - Reps/Duration 60 sec each LE Tandem stance Details Reviewed (declined HO) Equipment - Reps/Duration 60 each LE Comments Killian PT-OP-T Assessment and Plan Start: 09/10/24 10:46 Freq: Status: Active Protocol: Document 11/04/24 09:49 SP (Rec: 11/04/24 10:37 SP [id number]) Physical Therapy Assessment Goals 3 Impairment Lack of HEP Bonderizer Operator Goal (LTG) Pt will perform progressive HEP with I including pelvic realignment, postural, flexibility, strengthening and balance exercises to improve quality of life and overall strength. 10/22/24: Pt is performing HEP exercises. LTG Duration 7 weeks 2 Impairment Hip weakness Custodial Goal (LTG) Pt will present with B hip flexion, abduction, adduction, extension and IR and ER strength to at least 5/5 to improve pain and functional mobility. 10/22/24: Pt supine: right hip: flexion, abduction and adduction 5/5 and ER and IR 4+ /5; left hip: flexion and adduction 4+/5, abduction 5/5, ER and IR 4+/5. LTG Duration 7 weeks 1 Impairment C/o right hip and thigh pain Custodial Goal (LTG) Pt will report an overall 85% improvement in right hip and thigh pain to improve quality of life. 10/22/24: Pt reports an overall 30% improvement in right hip pain since starting PT. LTG Duration 7 weeks Assessment Summary Assessment Pt good response to increased sets to progress strengthening sup/seated and added standing resisted hip ABD and Ext with good response feels fine, I like muscle tiring. Provided HOs for standing HEP. Pt did well with stationary balance today 60 sec each LE and progressed with dynamic stepping, slight hip IR on R and almost scissor/tandem stepping but self correction with occ cues for space between feet by STEEL CRANE OPERATOR, hand written on HO for carryover home. Physical Therapy Plan Frequency and Duration Frequency of Treatment 1-2x/wk Duration of treatment (weeks) 7 Plan of Care Start Date 10/22/24 Plan of Care End Date 12/09/24 Therapeutic Interventions Therapeutic Interventions Balance Training,Gait Training ,Home Exercise Program,Joint Mobilizations,Manual Therapy, Neuromuscular Re-education, Patient/Caregiver Education, Self-Care/Home Management,Soft Tissue Mobilization,Taping, Therapeutic Activities, Therapeutic Exercises Modalities Cold Pack/Ice Massage,Electric Stimulation,Hot Packs, Ultrasound Next Visit Focus/Plan Next Note Type Treatment Note Next Visit Plan Recheck added resisted standing abd and ext. Con't manual work as needed, recheck dynamic stepping. Next standing wall slides for quads and core with band around legs Revisit assessing leg length Assess ongoing progress vs possible diagnostic rec/ referral to ortho
--- NOTE | 2024-11-06 12:05 | PT.OTN ---
Current Diagnoses Low back pain, unspecified (11/06/24) Physical Therapy Treatment Note PT-OP-A Visit Information Start: 09/10/24 10:46 Freq: Status: Active Protocol: Document 11/06/24 11:30 MB (Rec: 11/06/24 12:03 MB Desktop) Out-Patient Physical Therapy Visit Information Visit Information Visit Type Treatment Note Visit Note PN by 11/21 Visit Start Time 11:30 Visit Stop Time 12:10 Visit Number 9 Number of [employer] MECH[employer] Visits 0 Evaluation Information Evaluation Date 09/10/24 PT-OP-B Current Condition Start: 09/10/24 10:46 Freq: Status: Active Protocol: Document 09/10/24 10:45 MB (Rec: 09/10/24 11:25 MB [id number]) Current Condition History of Current Condition Onset Date Around November or December 2023 Current Complaints Pain radiating into right thigh when she moves History of Current Condition Pt went to [facility] for PT last year and she wanted to come to hospital for this issue. She was going to [facility] for right shoulder pain. The exercises there might have been too much . She works out at the gym regularly. She had an onset of right SI pain down through the leg that she thinks may be related to changing lifting and working patterns d/t right shoulder. She is currently most concerned about her right hip and not so much the back. Dr. Mcallister may have thought more of a back issue she saw her in June. Ibuprofen and acetaminophen help her pain. Sitting too long makes the pain worse. She has not been going to the gym as much. She is doing light weights. She is just doing the machines. Her balance is a little challenged. She is doing cardio on elliptical and stairs. Pt is sleeping well. Pt denies numbness and tingling in the leg. Prior Treatments and Tests IMPRESSION: Right hip x-ray 07/12/24: Minimal bilateral hip arthrosis. If there is high concern for further derangement, consider MRI evaluation. Probable small intraosseous cyst at the left femoral neck. Treatment Goals Patient/Caregiver Goals To decrease pain. PT-OP-C Subjective Start: 09/10/24 10:46 Freq: Status: Active Protocol: Document 11/06/24 11:30 MB (Rec: 11/06/24 12:03 MB Desktop) OP-PT Subjective Patient Comments Patient Comments Pt states that she con't to note that the pain is worse in right lateral hip when she is standing a lot. She stood at kitchen counter for a while and then her hip bothered her. PT-OP-G Mobility & Gait Start: 09/10/24 10:46 Freq: Status: Active Protocol: Document 09/10/24 10:45 MB (Rec: 09/10/24 11:25 MB [id number]) OP Gait Assessment Comments Gait Comments Left distal LE with more IR and valgus at knee with more lateral WB on foot, appears to have a functional leg length difference in standing PT-OP-J Posture/Palpation/Skin Start: 09/10/24 10:46 Freq: Status: Active Protocol: Document 09/10/24 10:45 MB (Rec: 09/10/24 11:25 MB [id number]) Posture Evaluation Comments Posture Comments Left distal LE with more IR and valgus at knee with more lateral WB on foot, appears to have a functional leg length difference in standing with LLE mildly longer and left knee mildly flexed. Severe forward head and rounded shoulder and rounded shoulders such that tragus is not anterior to AC joint on the right, Dowager's hump, decreased thoracic kyphosis and right shoulder and scapula are more anteriorly positioned than the left; changes in thoracic and lumbar curvature as well, left iliac crest is mildly higher than the right. Prefers extension with spinal extension to 20 deg in standing with hands on hips and fingers 1 from floor with forward flexion and reports of increased pain in right hip and thigh: SB to the right 10 deg and SB to left 5 deg. Slump: negative B Supine passive SLR: B 70 deg and pt reports discomfort anterior right hip with passive SLR right Pt reports clicking in right hip when she gets up in the morning and then if feels better, pt report stiffness in right hip when she goes to get up Supine SI testing: more stiffness on the left. Pt reports hypermobile usually. Vy B negative for pain. Of note, anterior hip popping with both. PT-OP-K Range of Motion Start: 09/10/24 10:46 Freq: Status: Active Protocol: Document 09/10/24 10:45 MB (Rec: 09/10/24 11:25 MB [id number]) Hip Goniometric Range of Motion Hip ROM Comments Supine ROM: left IR 20 deg and ER at least 60 deg; right hip is similar to the left PT-OP-M Strength Start: 09/10/24 10:46 Freq: Status: Active Protocol: Document 09/10/24 10:45 MB (Rec: 09/10/24 11:25 MB [id number]) Hip Strength Hip Manual Muscle Testing Left Flexion (L2) 4+ Good+ Extension (S1) 4+ Good+ Abduction 4+ Good+ Adduction 4 Good External Rotation 4+ Good+ Internal Rotation 4+ Good+ Right Flexion (L2) 4 Good Extension (S1) 4 Good Abduction 4+ Good+ Adduction 4 Good External Rotation 4- Good- Internal Rotation 3+ Fair+ Comments All MMT in supine today Knee Strength Knee Manual Muscle Testing Left Flexion (S2) 5 Normal Extension (L3) 5 Normal Right Flexion (S2) 5 Normal Extension (L3) 5 Normal Ankle/Foot Strength Ankle and Foot Manual Muscle Testing Left Dorsiflexion (L4) 5 Normal Right Dorsiflexion (L4) 5 Normal Toe Strength Toe Manual Muscle Testing Left Great Toe Extension 5 Normal Right Great Toe Extension 5 Normal PT-OP-Q Treatments Start: 09/10/24 10:46 Freq: Status: Active Protocol: Document 11/06/24 11:30 MB (Rec: 11/06/24 12:03 MB Desktop) Therapeutic Exercises Supine Exercises Core Progression Supine Exercise Name Performed today as far as HEP review and pt requires cues Comments Performed all exercises Standing Exercises SLS Standing Exercise Name HEP and provided handout today Reps/Minutes Stand up to 60 sec with level pelvis Side stepping and backwards walking with band Standing Exercise Name HEP and handout today Resistance Green band ankles and teal band knees Comments Slide hand along, side stepping and backwards stepping Wall slide Standing Exercise Name HEP and handout today Resistance Teal band around knees Reps/Minutes 5 reps, cues for pelvic tilt and core Comments Cues to count on the way down and up to keep slow HIp Extension Standing Exercise Name Reviewed from HEP Resistance Tb #2 teal at ankles Equipment Used Ballet bar Reps/Minutes 10 reps Comments Cues for posture and core engagement Hip Abduction Standing Exercise Name Reviewed from [facility] Side bilateral Resistance TB #2 teal at ankles Equipment Used Ballet bar Reps/Minutes 10 reps Comments Cues for posture and core engagement Other Exercises HEP review on progress note Other Exercise Name Reviewed today: pelvic realignment as needed, stretches as needed Comments Alternate strengthening exercises 3x/wk PT-OP-T Assessment and Plan Start: 09/10/24 10:46 Freq: Status: Active Protocol: Document 11/06/24 11:30 MB (Rec: 11/06/24 12:03 MB Desktop) Physical Therapy Assessment Goals 3 Impairment Lack of HEP Care Home Goal (LTG) Pt will perform progressive HEP with I including pelvic realignment, postural, flexibility, strengthening and balance exercises to improve quality of life and overall strength. 10/22/24: Pt is performing HEP exercises. LTG Duration 7 weeks 2 Impairment Hip weakness Care Home Goal (LTG) Pt will present with B hip flexion, abduction, adduction, extension and IR and ER strength to at least 5/5 to improve pain and functional mobility. 10/22/24: Pt supine: right hip: flexion, abduction and adduction 5/5 and ER and IR 4+ /5; left hip: flexion and adduction 4+/5, abduction 5/5, ER and IR 4+/5. LTG Duration 7 weeks 1 Impairment C/o right hip and thigh pain Guide Foreign Tour Goal (LTG) Pt will report an overall 85% improvement in right hip and thigh pain to improve quality of life. 10/22/24: Pt reports an overall 30% improvement in right hip pain since starting PT. LTG Duration 7 weeks Assessment Summary Assessment HEP review today and revised program, cues for gentle core strengthening. Physical Therapy Plan Frequency and Duration Frequency of Treatment 1-2x/wk Duration of treatment (weeks) 7 Plan of Care Start Date 10/22/24 Plan of Care End Date 12/09/24 Therapeutic Interventions Therapeutic Interventions Balance Training,Gait Training ,Home Exercise Program,Joint Mobilizations,Manual Therapy, Neuromuscular Re-education, Patient/Caregiver Education, Self-Care/Home Management,Soft Tissue Mobilization,Taping, Therapeutic Activities, Therapeutic Exercises Modalities Cold Pack/Ice Massage,Electric Stimulation,Hot Packs, Ultrasound Next Visit Focus/Plan Next Note Type Treatment Note Next Visit Plan Progress core exercises, consider standing multifidi push out, sliding foot out and body blade, plank, bird dog Ongoing manual work With primary PT, consider Sheron Consider orthopedic referral in the future
--- NOTE | 2024-11-13 11:32 | PT.OTN ---
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 She was going to [facility] for right shoulder pain. The exercises there might have been too much . She works out at the gym regularly. She had an onset of right SI pain down through the leg that she thinks may be related to changing lifting and working patterns d/t right shoulder. She is currently most concerned about her right hip and not so much the back. Dr. Mcallister may have thought more of a back issue she saw her in June. Ibuprofen and acetaminophen help her pain. Sitting too long makes the pain worse. She has not been going to the gym as much. She is doing light weights. She is just doing the machines. Her balance is a little challenged. She is doing cardio on elliptical and stairs. Pt is sleeping well. Pt denies numbness and tingling in the leg. Prior Treatments and Tests IMPRESSION: Right hip x-ray 07/12/24: Minimal bilateral hip arthrosis. If there is high concern for further derangement, consider MRI evaluation. Probable small intraosseous cyst at the left femoral neck. Treatment Goals Patient/Caregiver Goals To decrease pain. PT-OP-C Subjective Start: 09/10/24 10:46 Freq: Status: Active Protocol: Document 11/13/24 10:58 MB (Rec: 11/13/24 11:25 MB Desktop) OP-PT Subjective Patient Comments Patient Comments Pt is feeling better. She is dividing up exercises. PT-OP-G Mobility & Gait Start: 09/10/24 10:46 Freq: Status: Active Protocol: Document 09/10/24 10:45 MB (Rec: 09/10/24 11:25 MB [id number]) OP Gait Assessment Comments Gait Comments Left distal LE with more IR and valgus at knee with more lateral WB on foot, appears to have a functional leg length difference in standing PT-OP-J Posture/Palpation/Skin Start: 09/10/24 10:46 Freq: Status: Active Protocol: Document 09/10/24 10:45 MB (Rec: 09/10/24 11:25 MB [id number]) Posture Evaluation Comments Posture Comments Left distal LE with more IR and valgus at knee with more lateral WB on foot, appears to have a functional leg length difference in standing with LLE mildly longer and left knee mildly flexed. Severe forward head and rounded shoulder and rounded shoulders such that tragus is not anterior to AC joint on the right, Dowager's hump, decreased thoracic kyphosis and right shoulder and scapula are more anteriorly positioned than the left; changes in thoracic and lumbar curvature as well, left iliac crest is mildly higher than the right. Prefers extension with spinal extension to 20 deg in standing with hands on hips and fingers 1 from floor with forward flexion and reports of increased pain in right hip and thigh: SB to the right 10 deg and SB to left 5 deg. Slump: negative B Supine passive SLR: B 70 deg and pt reports discomfort anterior right hip with passive SLR right Pt reports clicking in right hip when she gets up in the morning and then if feels better, pt report stiffness in right hip when she goes to get up Supine SI testing: more stiffness on the left. Pt reports hypermobile usually. Scour and JEOVANNY B negative for pain. Of note, anterior hip popping with both. PT-OP-K Range of Motion Start: 09/10/24 10:46 Freq: Status: Active Protocol: Document 09/10/24 10:45 MB (Rec: 09/10/24 11:25 MB [id number]) Hip Goniometric Range of Motion Hip ROM Comments Supine ROM: left IR 20 deg and ER at least 60 deg; right hip is similar to the left PT-OP-M Strength Start: 09/10/24 10:46 Freq: Status: Active Protocol: Document 09/10/24 10:45 MB (Rec: 09/10/24 11:25 MB [id number]) Hip Strength Hip Manual Muscle Testing Left Flexion (L2) 4+ Good+ Extension (S1) 4+ Good+ Abduction 4+ Good+ Adduction 4 Good External Rotation 4+ Good+ Internal Rotation 4+ Good+ Right Flexion (L2) 4 Good Extension (S1) 4 Good Abduction 4+ Good+ Adduction 4 Good External Rotation 4- Good- Internal Rotation 3+ Fair+ Comments All MMT in supine today Knee Strength Knee Manual Muscle Testing Left Flexion (S2) 5 Normal Extension (L3) 5 Normal Right Flexion (S2) 5 Normal Extension (L3) 5 Normal Ankle/Foot Strength Ankle and Foot Manual Muscle Testing Left Dorsiflexion (L4) 5 Normal Right Dorsiflexion (L4) 5 Normal Toe Strength Toe Manual Muscle Testing Left Great Toe Extension 5 Normal Right Great Toe Extension 5 Normal PT-OP-Q Treatments Start: 09/10/24 10:46 Freq: Status: Active Protocol: Document 11/13/24 10:58 MB (Rec: 11/13/24 11:25 MB Desktop) Manual Therapy Treatment Consent Patient gave verbal consent for manual Yes treatment Neuro Re-Education Treatment Movement Re-Education Movement Re-education Activities Pt in side lying: B rib recoil for paraspinals, QL, TFL, hip rotators, TrP right TFL and glute med PT-OP-T Assessment and Plan Start: 09/10/24 10:46 Freq: Status: Active Protocol: Document 11/13/24 10:58 MB (Rec: 11/13/24 11:25 MB Desktop) Physical Therapy Assessment Goals 3 Impairment Lack of HEP [facility]iary Goal (LTG) Pt will perform progressive HEP with I including pelvic realignment, postural, flexibility, strengthening and balance exercises to improve quality of life and overall strength. 10/22/24: Pt is performing HEP exercises. LTG Duration 7 weeks 2 Impairment Hip weakness Banquet Captain Goal (LTG) Pt will present with B hip flexion, abduction, adduction, extension and IR and ER strength to at least 5/5 to improve pain and functional mobility. 10/22/24: Pt supine: right hip: flexion, abduction and adduction 5/5 and ER and IR 4+ /5; left hip: flexion and adduction 4+/5, abduction 5/5, ER and IR 4+/5. LTG Duration 7 weeks 1 Impairment C/o right hip and thigh pain [facility]itentiary Goal (LTG) Pt will report an overall 85% improvement in right hip and thigh pain to improve quality of life. 10/22/24: Pt reports an overall 30% improvement in right hip pain since starting PT. LTG Duration 7 weeks Assessment Summary Assessment Pt late d/t traffic from [place] and having trouble finding parking. Manual work today in side lying and pt responds well. Physical Therapy Plan Frequency and Duration Frequency of Treatment 1-2x/wk Duration of treatment (weeks) 7 Plan of Care Start Date 10/22/24 Plan of Care End Date 12/09/24 Therapeutic Interventions Therapeutic Interventions Balance Training,Gait Training ,Home Exercise Program,Joint Mobilizations,Manual Therapy, Neuromuscular Re-education, Patient/Caregiver Education, Self-Care/Home Management,Soft Tissue Mobilization,Taping, Therapeutic Activities, Therapeutic Exercises Modalities Cold Pack/Ice Massage,Electric Stimulation,Hot Packs, Ultrasound Next Visit Focus/Plan Next Note Type Treatment Note Next Visit Plan B[place]yko breathing next treatment Manual and d/c following Consider orthopedic referral in the future
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
== END 2024-11-22 13:37 | disposition home or self-care (01) ==
LOC: PHYS 10:45
PROVIDERS: Family Provider Family Medicine; PCP Family Medicine; Referring Provider Family Medicine; Visit Provider Family Medicine
DX: M54.50 Low back pain, unspecified (principal)
CPT/HCPCS: 97110; 97112; 97140; 97161; 97535

== ENCOUNTER → 2025-05-28 13:18 | Outpatient (CLI) | payer BC, SELFPAY ==
--- NOTE | 2025-05-28 13:19 | DI.MRI.S_ITS ---
PROCEDURE: MR HIP RT WO CON INDICATIONS: hip pain TECHNIQUE: Noncontrast coronal T1 spin echo and STIR through the bony pelvis. Coronal and axial T2 fast spin echo with fat saturation, sagittal T1 spin echo, and oblique axial T2 fast spin echo with fat saturation through the hip. COMPARISON: None. FINDINGS: Image quality: Diagnostic. Right Hip (small FOV): Partial-thickness, grade 2-3, thinning of the central superior femoral acetabular articular cartilage. Intrasubstance degeneration of the anterior superior, superior lateral and posterior superior labrum. No displaced labral tear. Ligamentum teres is intact. Small hip joint effusion. No articular body. Lumbar spine: Degenerative discogenic bone marrow edema at L5-S1. Sacroiliac joints/pubic symphysis: Normal. Muscles/tendons/bursae: Severe tendinosis of the right gluteus minimus with grade 2 strain of the anterior myotendinous junction. There is low-grade undersurface degenerative tearing of the tendon insertion at the superior aspect of the anterior facet. Mild insertional tendinosis of the gluteus medius. Moderate sub gluteal bursitis and mild trochanteric bursitis. Mild insertional tendinosis of the right iliopsoas. No iliopsoas bursitis. The abductor musculature is unremarkable. Mild tendinosis of the right hamstring conjoint tendon origin. No tear. Neurovascular: Unremarkable. Pelvic viscera: Unremarkable, non-dedicated study. Subcutaneous tissues: Changes of prior Caesarean surgical incision. IMPRESSION: 1. Right gluteus minimus severe insertional tendinosis with grade 2 strain of the anterior myotendinous junction and low-grade undersurface degenerative tearing at the superior aspect of the anterior facet. 2. 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 3. Intrasubstance degeneration of the anterior superior to posterior superior labrum without discrete, displaced, labral tear. 4. Moderate right sub gluteal and mild right trochanteric bursitis. Dictated by: Nigel Rivera M.D. on 05/28/2025 at 13:52 Approved by: Nigel Rivera M.D. on 05/28/2025 at 13:57
== END ==
LOC: MRI 13:18
PROVIDERS: Family Provider Family Medicine; PCP Family Medicine; Referring Provider Family Medicine; Visit Provider Family Medicine
DX: S76.011A Strain of muscle, fascia and tendon of right hip, initial encounter (principal); M70.61 Trochanteric bursitis, right hip; M94.251 Chondromalacia, right hip; M25.551 Pain in right hip
CPT/HCPCS: 73721